=== PATIENT | male | born 1935 | race Caucasian/White ===

== ENCOUNTER 2019-04-14 05:43 | Day surgery (SDC) | payer MEDICARE, OTHER, SELFPAY ==
[2019-04-10 10:35] VITALS: BMI 26.2
--- NOTE | 2019-04-10 10:50 | ANES.PREANE2 ---
Pre-Anesthetic Assessment Pre-Anesthetic Assessment: Height/Weight: Height 1.83 m Weight 87.543 kg Preop Diagnosis: Symptomatic right groin and umbilical hernia Proposed Procedure: Operation Date: 04/14/19 07:00 Proposed Procedures p Laparoscopic Inguinal Hernia Repair w/Mesh 52855 [id number] K42.9 K40.90(Right) - Nuno Lundberg MD s Umbilical Hernia Repair(Not Applicable) - Nuno Lundberg MD Social: Social History: No alcohol and No tobacco Exam: Pre-Anes Outpt Exam: alert, oriented x 3, clear to auscultation bilaterally and regular rate & rhythm Airway: Submandibular: WNL Cervical ROM: WNL MP: 2 Dentition: Other (teeth ok) History/ROS: No significant history except as noted Pulmonary: Pulmonary: None reported CV/HEM: CV/HEM: HTN : : None reported Hepatic: Hepatic: None reported GI: GI: GERD (occ) Metabolic: Metabolic: None reported Musc/skel: Musc/skel: OA/DJD Neuropsych: Neuropsych: None reported Anesthetic Plan: ASA status: 2 Anesthesia: Anesthesia Evaluation and General Risk of > 500 ml blood loss (7ml/kg in children): No PFSH Anesthesia PFSH: Medical History BPH (benign prostatic hyperplasia) Hernia History of perforated ear drum (~2012) Hypertension Surgical History History of carpal tunnel surgery of right wrist History of colonoscopy (~05/2018) normal History of left inguinal hernia repair (~1972) Family History Mother Cancer breast Father Cancer thyroid Denies family history of Anesthesia complication Bleeding disorder Social History Smoking and tobacco status: former smoker Quit status (tobacco): has quit using tobacco Year quit tobacco: 1981 Second hand smoke exposure: No Alcohol intake: current Alcohol intake frequency: holidays/special occasions only Alcohol type: beer Adopted: No Caregiver/support person: Yes Lives independently: Yes Household members: spouse Housing: House Marital status: service: Yes Current occupational status: retired Current occupational exposures/hazards: No Pets and animals: No History of recent travel: No Sexually active: No Current gender identity: Male Data Anesthesia Cardiac Studies: No Data to Display
[2019-04-14] VITALS (7 sets, daily range): BP systolic 105–128; BP diastolic 71–91; PULSE 71–83; RESP 14–20; TEMP 36.2–36.8; O2SAT 94–99
--- NOTE | 2019-04-14 06:24 | PM.HPUD ---
H&P update H&P Update: DATE OF SURGERY/PROCEDURE: 04/14/19 DATE H&P PERFORMED: 03/30/19 H&P UPDATE INFORMATION: H&P completed within last 30 days and No changes to prior documentation PREOP DIAGNOSIS: Symptomatic right groin and umbilical hernia PRIMARY INDICATION FOR PROCEDURE: The same PLANNED PROCEDURE: Operation Date: 04/14/19 07:00 Proposed Procedures p Laparoscopic Inguinal Hernia Repair w/Mesh 24519 18375 K42.9 K40.90(Right) - Nuno Lundberg MD s Umbilical Hernia Repair(Not Applicable) - Nuno Lundberg MD Full H&P Perinent History: Medical/Surgical History: Medical History (Updated 03/31/19 @ 14:52 by Nuno Ludnberg MD) BPH (benign prostatic hyperplasia) Hernia History of perforated ear drum (~2012) Hypertension Family History: Family History (Updated 03/27/19 @ 15:05 by Dara Caro RN) Mother Cancer breast Father Cancer thyroid Denies family history of Anesthesia complication Bleeding disorder Social History: Social History Smoking and tobacco status: former smoker Quit status (tobacco): has quit using tobacco Year quit tobacco: 1981 Second hand smoke exposure: No Alcohol intake: current Alcohol intake frequency: holidays/special occasions only Alcohol type: beer Adopted: No Caregiver/support person: Yes Lives independently: Yes Household members: spouse Housing: House Marital status: service: Yes Current occupational status: retired Current occupational exposures/hazards: No Pets and animals: No History of recent travel: No Sexually active: No Current gender identity: Male
[2019-04-14] MEDS: sodium chloride 0.9% 1,000 ML 30 ML IV (06:34)
[2019-04-14] MEDS: lidocaine 2% INJ 20 mL INJECTION (07:29)
--- NOTE | 2019-04-14 08:45 | PM.OP ---
Operative Report Date of procedure: April 14, 2019 Pre-op Diagnosis: Symptomatic right groin and umbilical hernia Post-op diagnosis: same Post-op Findings: Right direct and smaller indirect component 3D large mesh placed Umbilical hernia containing omental fat closed using trans-fascial closure device Procedure Done: Laparoscopic right inguinal hernia repair with mesh placement and open umbilical hernia repair Implants: Right large 3D mesh Specimens removed/disposition: Hernial sac and content Surgeon: Nuno Lundberg Enrollment Coordinator: Surgical michael Wyatt Medical student Abraham Perez Circulating nurse Delores Anesthesia: General (director of sales marketing Paulino) Estimated blood loss (mL): 10 Condition: stable Disposition: same day Procedure: Procedure: Transabdominal preperitoneal (BERTRAND) approach. Patient was identified in the holding area ,patient was taken to the operating room where he was placed in supine position, with both arms were tucked, antibiotic was given with induction, endotracheal tube was placed per anesthesia, Garcia catheter was inserted by the circulating nurse and revealed clear urine, prep and drape of the abdomen was done under the usual sterile technique. Time-out was done verifying the patient's name/date of /planned procedure destination after the procedure, all were in agreement. SCDs confirmed to be functioning, preoperative antibiotics administered per protocol, and beta alejandro protocol was confirmed. A vertical skin incision of 1.2 cm was made with 11 blade knife through the supra umbilicus , incision was carried down to the subcutaneous tissue and deepened to identify the anterior fascia, evidence of large jhonny-umbilical fat-containing hernia(fascial defect less than 1 inch in diameter) was dissected and hernial sac and contents were sent for permanent pathology followed by that, two stay sutures were applied to the fascia, and safe entrance to the abdominal cavity was achieved, a Menard trocar technique safe entry to the abdominal cavity was achieved verified by using 10 mm zero degree laparoscopy, switched to a 30 degrees scope,low flow followed by a higher flow of CO2 gas up to 15 mmHg. There was no evidence of injury to intra-abdominal structures from the port entry, attention was deviated to both groins, there was a large direct hernia defect with herniation of peritoneum and preperitoneal fat was noted on the right side, two 5 mm ports were placed on the lower left lateral and left upper aspect of the abdomen, under direct visualization, anesthesia 2% lidocaine local was injected at all trocar sites prior to incisions. The peritoneum above the level of the iliopubic tract was incised to the left of the midline and dissection was performed to create a preperitoneal space medial to lateral aspect up to anterior superior iliac spine on the right side. Dissection was continued onto the medial aspect and the right spermatic was identified, there was evidence of direct inguinal hernia .the sac was dissected. As it applied medial to the right inferior epigastric vessels/ dissection was performed to clear the space lateral to the spermatic cord and dorsomedial to it, the hernia sac was reduced and retracted far back, so there wasn't evidence of a small indirect inguinal hernia that was dissected.. Then a large 3-D mesh was rolled and placed into the abdominal cavity through the Menard port, after the mesh was introduced it was positioned to lie in the myopectineal orifice and the mesh was unrolled and this covered the entire my myope pectineal orifice. Intra-abdominal pressure was dropped to 12 mmHg to help placement of the mesh good position On the lateral aspect of the mesh extended up to the anterior superior iliac spine on the medial aspect the mesh crossed the midline onto the left side, then using absorbable tacks, placed above the iliopubic tract onto the rectus abdominis muscle on the medial aspect and also to the lateral abdominal wall superomedial to the sacroiliac spine, then the mesh was also anchored to the pubis and the Aj's ligament inferiorly. The peritoneal leaflets were then brought together to cover the mesh and isolated from the other viscera, extra tacks were used to secure the peritoneum in good position. 5 mm clips were applied at the lower part of the peritoneum as there was a small rent Final look demonstrated good hemostasis and the mesh in good position A total of 20 mL Exparel 40 ml Normal saline 20 ml bupivacaine 0.25% were injected at the remaining of the tacks site and trocar sites as well Final look demonstrated good hemostasis, then the abdomen was desufflated while holding the peritoneum to make sure there is no herniation blue the mesh. Then the fascia on the supra umbilical fascial defect previous site of the hernia was closed using 0 Vicryl under direct visualization using fascial closure device Arnoldo Nieves. Then all trochars were taken out under direct visualization All skin incisions were closed with 4-0 Monocryl subcuticular suture and Dermabond was applied. The patient tolerated the procedure well, Garcia catheter was taken out ,got extubated and was taken to the recovery area in stable condition All counts of instruments, needles and sponges were completed I was present for the whole entire procedure
[2019-04-14] MEDS: HYDROcodone-acetaminophen 5-325 mg Tablet 1 TAB PO (09:40)
== END 2019-04-14 10:55 | disposition home or self-care (01) ==
PROVIDERS: Family Provider Nurse Practitioner Family; PCP Nurse Practitioner Family; Visit Provider Surgery
PROC: (CPT 49650; principal; 2019-04-14 07:00)
PROC: (CPT 49585; 2019-04-14 07:00)
DX: K40.90 Unilateral inguinal hernia, without obstruction or gangrene, not specified as recurrent (principal); K42.9 Umbilical hernia without obstruction or gangrene; N40.0 Benign prostatic hyperplasia without lower urinary tract symptoms; I10 Essential (primary) hypertension; Z87.891 Personal history of nicotine dependence
CPT/HCPCS: 49585; 49650; 12345; 51702; 88302; 96365; C1781; C9290; J0131; J0690; J2001; J2405; J2704; J3010; J3490; J7030

== ENCOUNTER → 2020-02-11 15:21 | Outpatient (BNVA) | payer MEDICARE, OTHER, SELFPAY | PROVIDERS: Family Provider Nurse Practitioner Family; PCP Nurse Practitioner Family; Visit Provider Nurse Practitioner | DX: R07.9 Chest pain, unspecified (principal); I10 Essential (primary) hypertension; J43.9 Emphysema, unspecified | CPT/HCPCS: 71046; 80053; 80061; 84443; 84484; 85025 ==

== ENCOUNTER → 2021-12-11 11:04 | Outpatient (BNVA) | payer MEDICARE, SELFPAY | PROVIDERS: Family Provider Nurse Practitioner Family; PCP Nurse Practitioner Family; Visit Provider Nurse Practitioner Family | DX: M25.461 Effusion, right knee (principal); M25.561 Pain in right knee; M25.562 Pain in left knee | CPT/HCPCS: 73562 ==

== ENCOUNTER → 2021-12-19 08:22 | Outpatient (BNVA) | payer MEDICARE, SELFPAY | PROVIDERS: Family Provider Nurse Practitioner Family; PCP Nurse Practitioner Family; Visit Provider Orthopaedic Surgery | DX: M17.0 Bilateral primary osteoarthritis of knee (principal) | CPT/HCPCS: 99204 ==

== ENCOUNTER → 2022-06-27 10:10 | Outpatient (BNVA) | payer MEDICARE, SELFPAY | PROVIDERS: Family Provider Nurse Practitioner Family; PCP Nurse Practitioner Family; Visit Provider Nurse Practitioner Family | DX: R05.9 Cough, unspecified (principal); R07.89 Other chest pain | CPT/HCPCS: 71046; 80053; 85025 ==

== ENCOUNTER → 2022-09-21 09:59 | Outpatient (BNVA) | payer MEDICARE, SELFPAY | PROVIDERS: Family Provider Nurse Practitioner Family; PCP Family Medicine; Visit Provider Family Medicine | DX: R06.00 Dyspnea, unspecified (principal); R53.83 Other fatigue; J44.9 Chronic obstructive pulmonary disease, unspecified; I10 Essential (primary) hypertension; E03.9 Hypothyroidism, unspecified | CPT/HCPCS: 80053; 82088; 82533; 82607; 84443; 85025 ==

== ENCOUNTER → 2022-10-10 12:32 | Outpatient (BNVA) | payer MEDICARE, SELFPAY | PROVIDERS: Family Provider Nurse Practitioner Family; PCP Family Medicine; Visit Provider Dermatology | DX: L82.1 Other seborrheic keratosis (principal); L81.4 Other melanin hyperpigmentation; D18.01 Hemangioma of skin and subcutaneous tissue; Z08 Encounter for follow-up examination after completed treatment for malignant neoplasm; Z85.820 Personal history of malignant melanoma of skin; D48.5 Neoplasm of uncertain behavior of skin; L57.0 Actinic keratosis | CPT/HCPCS: 11102; 17000; 17003; 99203; 99204 ==

== ENCOUNTER → 2022-11-29 11:49 | Outpatient (BNVA) | payer MEDICARE, SELFPAY | PROVIDERS: Family Provider Nurse Practitioner Family; PCP Family Medicine; Visit Provider Internal Medicine Pulmonary Disease | DX: J44.9 Chronic obstructive pulmonary disease, unspecified (principal); R06.00 Dyspnea, unspecified; J84.9 Interstitial pulmonary disease, unspecified; R06.02 Shortness of breath; M19.90 Unspecified osteoarthritis, unspecified site; M25.642 Stiffness of left hand, not elsewhere classified; M25.641 Stiffness of right hand, not elsewhere classified; Z57.2 Occupational exposure to dust; Z87.891 Personal history of nicotine dependence | CPT/HCPCS: 36415; 82785; 85651; 86003; 86140; 86200; 86225; 86235; 86431; 99204 ==

== ENCOUNTER 2022-12-11 07:22 | Outpatient (CLI) | payer MEDICARE, SELFPAY | END 2022-12-11 07:23 | disposition home or self-care (01) | LOC: RT 07:22 | PROVIDERS: Family Provider Nurse Practitioner Family; PCP Family Medicine; Visit Provider Internal Medicine Pulmonary Disease | DX: R06.02 Shortness of breath (principal) | CPT/HCPCS: 94010; 94618; 94726; 94729 ==

== ENCOUNTER 2022-12-14 10:24 | Outpatient (CLI) | payer MEDICARE, SELFPAY ==
--- NOTE | 2022-12-14 10:30 | CTR_ITS ---
PROCEDURE INFORMATION: Exam: CT Chest Without Contrast; Diagnostic Exam date and time: 12/14/2022 10:51 AM Age: 87 years old Clinical indication: Condition or disease; Lung condition and disease; Other: Interstitial lung disease; Additional info: Hrct TECHNIQUE: Imaging protocol: Diagnostic computed tomography of the chest without contrast. Radiation optimization: All CT scans at this facility use at least one of these dose optimization techniques: automated exposure control; mA and/or kV adjustment per patient size (includes targeted exams where dose is matched to clinical indication); or iterative reconstruction. REPORTING DATA: Count of CT and Cardiac NM exams in prior 12 months: This patient has received 0 known CTs and 0 known cardiac nuclear medicine studies in the 12 months prior to the current study. COMPARISON: CR XR chest 2V* [id number] 06/27/2022 10:08 AM RADIATION DOSE METRICS: Total DLP (mGy-cm): 1111.52 FINDINGS: Thyroid: 1.5 cm nodule right lobe of the thyroid gland. 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 Few small pulmonary nodules measuring up to 5 mm. Mild biapical fibrotic changes likely longstanding. Pleural spaces: Unremarkable. No pneumothorax. No pleural effusion. Heart: Heart is not enlarged. Diffuse calcification of coronary arteries. No significant pericardial effusion. Lymph nodes: Multiple small mediastinal lymph nodes likely benign by size criteria. Vasculature: Scattered atherosclerotic changes of the thoracic aorta. No evidence of aortic aneurysm. Bones/joints: Subacute ununited fracture left 10th rib. Mild degenerative changes midthoracic spine. Soft tissues: Unremarkable. CT/CT chest wo con [id number] IMPRESSION: 1. 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 2. Few small pulmonary nodules measuring up to 5 mm. Recommend a repeat study in 6-12 months for continued surveillance. 3. Diffuse calcification of coronary arteries. COMMENTS: Consistent with the [employer]'s Incidental Findings Committee white paper (J Am Sonia Radiol 2015): In patients aged 35 years and older with an incidental thyroid nodule equal to or greater than 1.[address], MRI or extrathyroidal US, further evaluation with dedicated thyroid US is recommended for patients with normal life expectancy and without comorbidities. For smaller nodules without suspicious features, no further evaluation or follow up is recommended.
== END 2022-12-14 10:25 | disposition home or self-care (01) ==
LOC: RAD 10:25
PROVIDERS: Family Provider Nurse Practitioner Family; PCP Family Medicine; Visit Provider Internal Medicine Pulmonary Disease
DX: J84.9 Interstitial pulmonary disease, unspecified (principal)
CPT/HCPCS: 71250

== ENCOUNTER → 2023-01-29 11:57 | Outpatient (BNVA) | payer MEDICARE, SELFPAY | PROVIDERS: Family Provider Nurse Practitioner Family; PCP Family Medicine; Visit Provider Internal Medicine Pulmonary Disease | DX: J43.2 Centrilobular emphysema (principal); Z87.891 Personal history of nicotine dependence | CPT/HCPCS: 99214 ==

== ENCOUNTER 2023-04-20 11:56 | Emergency (ER) | payer MEDICARE, SELFPAY ==
[2023-04-20 12:20] VITALS: BP 157/96; PULSE 72; RESP 16; TEMP 36.8; O2SAT 99; BMI 24.4
[2023-04-20 12:56] VITALS: BP 148/111; PULSE 73; RESP 16; O2SAT 96
--- NOTE | 2023-04-20 13:04 | W.ED.BACK ---
HPI - Back Pain/Injury General: Chief Complaint: Back Pain/Injury Stated Complaint: fall, lower back pains Time Seen by Provider: 04/20/23 13:04 History of Present Illness: Patient is a 87 yo male that presents to the ER with complaints of low back pain. Onset of symptoms yesterday after a fall. He reports that he was hooking up a horse trailer when he became dizzy and lost his footing. He fell straight back, landing on his back. he denies striking his head or LOC. He reports he has been having a number of falls most recently. He states he becomes dizzy and describes generalized weakness. After this most recent fall he was able to get up and go to the house. He has had increasing back pain w/o radiation. He denies numbness or tingling in extremities. Denies other area of tenderness He does report midline lumbar pain. His pain continues to worsen today and has had intermittent SOB, diaphoresis, N/V. He has a hx of COPD and HTN. Does not take anticoagulants or antiplatelets Associated symptoms: Reports nausea and vomiting; Deny abdominal pain, chills, difficulty walking, dysuria, fatigue, fever(s), hematuria or urinary urgency Review of Systems General: Reports: 10 or more systems reviewed and unremarkable except in HPI and below Const: Denies: fever(s), chills, change in appetite, change in weight, fatigue or malaise Eyes: Denies: change in vision, eye discomfort, eye discharge or eye redness ENMT: Denies: throat pain, enlarged tonsils, odynophagia, hoarseness, ear or mastoid pain, ear discharge, change in hearing, tinnitus, nasal discharge, nasal congestion, post nasal drip or sinus pain Card: Denies: chest pain, palpitations, irregular heart rhythm, edema, dyspnea on exertion, orthopnea or leg pain with exertion Resp: Reports: dyspnea; Denies: productive cough, non-productive cough, wheezing, stridor or chest congestion GI: Reports: nausea and vomiting; Denies: abdominal pain, dysphagia, diarrhea, constipation, bloating, GI cramping or hematochezia : Denies: flank pain, dysuria, urinary frequency, urinary urgency, urinary hesitancy, oliguria or hematuria Musc: Reports: back pain; Denies: neck pain, extremity pain, joint pain, joint swelling, joint redness, joint warmth or muscle weakness Skin/Breast: Denies: rash, pruritus, erythema, photosensitivity or new lesions Neuro: Reports: frequent falls and dizziness; Denies: headache(s), numbness in extremities, weakness in extremities, sensory changes, lack of coordination, difficulty walking, confusion, Slurred speech present, difficulty communicating thoughts, seizure-like activity or involuntary movements Endo: Denies: polyuria, polydipsia or tired all the time Jameel/Lymph: Denies: easy bruising or easy bleeding PFSH ED PFSH: Medical History Effusion, right knee Hernia Hypertension BPH (benign prostatic hyperplasia) History of perforated ear drum (~2012) Surgical History History of carpal tunnel surgery of right wrist History of left inguinal hernia repair (~1972) History of colonoscopy (~05/2018) normal Family History Mother Cancer breast Father Cancer thyroid Denies family history of Anesthesia complication Bleeding disorder Social History Smoking and tobacco/nicotine status: former use of tobacco/nicotine Quit status (tobacco/nicotine): has quit using Year quit tobacco: 1981 Former quit date comment: 0.5 ppd X 31 years Second hand smoke exposure: No Alcohol intake: current Alcohol intake frequency: holidays/special occasions only Alcohol type: beer Substance/Drug Use: never Adopted: No Caregiver/support person: Yes Lives independently: Yes Household members: spouse Housing: House Marital status: Number of children: 3 service: No Current occupational status: retired Current occupational exposures/hazards: No Pets and animals: No Sexually active: No Do you think of yourself as: Straight/Heterosexual Current gender identity: Male Physical Exam Const: COMMON NORMALS: no acute distress, patient oriented x3 and alert GENERAL APPEARANCE: cooperative ORIENTATION/CONSCIOUSNESS: Yes awake, Yes oriented to person, Yes oriented to place and Yes oriented to time HENMT: COMMON NORMALS: normocephalic and atraumatic HEAD & SCALP: normocephalic and atraumatic FACE & SINUS: normal facial exam MOUTH: Normal oral and palatal mucosa present THROAT: posterior oropharynx normal Eye: COMMON NORMALS: Equal, round and reactive pupils present, EOMs intact bilaterally, conjunctivae normal and no scleral icterus GENERAL EYE: appearance normal, both eyes and all related structures ALIGNMENT: Yes alignment normal PERIORBITAL: periorbital findings normal CONJUNCTIVA: Yes conjunctivae normal PUPIL: Yes Equal, round and reactive pupils present Neck/C-Spine: COMMON NORMALS: full ROM GENERAL: Yes normal visual inspection CERVICAL SPINE: Yes cervical ROM normal and Yes other (crepitus with ROM) Lymph: LYMPHATIC: no lymphadenopathy noted Chest: COMMONS NORMALS: normal inspection of the chest Breast/axilla inspection: Yes no chest deformity, asymmetry, normal contours, no nodules, masses, tenderness Resp: COMMON NORMALS: normal respiratory effort, No retractions, No use of accessory muscles and clear to auscultation bilaterally EFFORT & INSPECTION: Yes able to speak in complete sentences and Yes symmetric chest movement AUSCULTATION: clear to auscultation bilaterally Cardio: COMMON NORMALS: regular rate, regular rhythm and Peripheral pulses 2+ throughout RATE: regular rate RHYTHM: regular rhythm PERIPHERAL PULSES: Peripheral pulses 2+ throughout GI: COMMON NORMALS: Normal to inspection, nondistended, normoactive bowel sounds present, Soft to palpation, non-tender and No hepatosplenomegaly present INSPECTION: Yes normal to inspection AUSCULTATION: Yes normoactive bowel sounds PALPATION: Yes Soft to palpation and Yes No hepatosplenomegaly present RECTAL EXAM: Yes deferred Back/Pelvis: GENERAL BACK: No ecchymosis and Yes tenderness LUMBAR SPINE/LOWER BACK: Yes normal to inspection, No lumbar ROM normal, Yes pain with ROM and Yes lumbar spinal tenderness (diffuse) OTHER: Patient ambulates with a cane Paraspinous muscles without spasm Limited range of motion due to pain TTP over midline lumbar spine Patient has 5/5 strength in bilateral hip flexor, quad, gastroc, anterior, toe extensors Denies numbness, tingling, pain in lower extremities 2+ reflexes, no clonus Extremity: COMMON NORMALS: normal to inspection GENERAL: Yes normal exam except as noted Neuro: COMMON NORMALS: patient oriented x3 SENSORIUM/ORIENTATION: Yes alert, Yes oriented to person, Yes oriented to place and Yes oriented to time CRANIAL NERVES: Yes CN normal except as noted Psych: COMMON NORMALS: mental status grossly normal, Normal thought process present, cooperative, activity/motor behavior normal, denies homicidal ideation and denies suicidal ideation THOUGHT PROCESS: Normal thought process present Skin: COMMON NORMALS: no rashes or lesions noted, no wounds and turgor normal GENERAL SKIN EXAM: no rashes or lesions noted and turgor normal Course Vital Signs: Vital signs: Vital Signs Temperature 98.2 F 04/20/23 12:20 Pulse Rate 73 04/20/23 12:56 Respiratory Rate 16 04/20/23 12:56 Blood Pressure 148/111 04/20/23 12:56 Pulse Oximetry 96 04/20/23 12:56 Oxygen Delivery Me thod Room Air 04/20/23 12:56 MDM - Back Pain/Injury Medical Decision Making Patient evaluated in the emergency department due to lumbar back pain following a fall. Patient had reported recent history of multiple falls, dizziness, unsteady gait. I did obtain a series of diagnostics and laboratory studies to further evaluate him. Differential diagnosis includes fracture, effusion, sprain/strain, head injury, stroke, hemorrhage, cardiac event, electrolyte abnormality, anemia. I obtained a CBC, CMP, troponin series to further evaluate this questionable dizziness that has been intermittent and ongoing for weeks to months. He has no evidence of electrolyte abnormality, anemias, leukocytosis. No evidence of renal or liver dysfunction. Troponin series within normal limits?initial troponin 11. I did obtain an EKG which revealed no ectopy, ST elevation, abnormal T wave inversion. Ventricular rate was 70 beats a minute and QTc of 417. I obtained a CT of his head, cervical spine, lumbar spine. Imaging of the head without contrast reveals no acute intracranial pathology. The cervical spine reveals degenerative changes but no acute fracture or subluxation. The CT of the lumbar spine reveals an L3 compression deformity with mild retropulsion. I did speak with Dr. Chavarria who is agreeable to follow-up with the patient this week or next. We are going to get him a TLSO. He is to wear this when he is out of bed. We are also sending him with a prescription of pain medication and muscle relaxers. He does have tramadol and oxycodone already at home. So he will pick this up next week if needed. Patient has no radiculopathy, no numbness tingling, no myelopathy. He is going to follow-up with Dr. Chavarria but will return to the emergency department for new concerning or worsening symptoms Labs 04/20/23 13:40 04/20/23 13:40 Radiology Impressions Chest X-Ray 04/20/23 13:13 IMPRESSION: Trace atelectasis or scar noted in the left lung base. Cervical Spine CT 04/20/23 13:17 IMPRESSION: 1. No acute cervical spine pathology. 2. Irregular area of parenchymal thickening seen at left lung apex unchanged from prior exam and felt to represent an area of chronic scarring. 3. 1.5 cm hypodense lesion in the right thyroid lobe unchanged from prior exam. Lumbar Spine CT 04/20/23 13:17 IMPRESSION: 1. L2 vertebral body compression fracture without retropulsion of bony fragments. 2. Emphysematous changes. 3. Right kidney not obstructing calyceal stones. 4. L2-L3 broad-based disc bulge with moderate spinal canal and bilateral foraminal narrowing. 5. L3-L4 broad-based disc bulge with moderate to severe spinal canal and bilateral foraminal narrowing. 6. L4-L5 broad-based disc bulge with moderate spinal canal and bilateral foraminal narrowing. 7. L5/S1 broad-based disc bulge with mild spinal canal and bilateral foraminal narrowing. Head CT 04/20/23 13:19 IMPRESSION: No acute intracranial pathology detected. Laboratory Results WBC 7.61 10^3/uL (3.29-11.43) 04/20/23 13:40 RBC 5.40 10^6/uL (3.85-5.65) 04/20/23 13:40 Hgb 16.80 g/dL (11.27-16.99) 04/20/23 13:40 Hct 50.6 % (37-53) 04/20/23 13:40 MCV 93.7 fl (82-101) 04/20/23 13:40 MCH 31.1 pg (27-33) 04/20/23 13:40 MCHC 33.2 g/dL (30-55) 04/20/23 13:40 RDW 14.6 % (12.1-15.1) 04/20/23 13:40 Plt Count 198 10^3/cmm (157-399) 04/20/23 13:40 MPV 10.2 fL (7.4-10.4) 04/20/23 13:40 Neut % (Auto) 84.1 % 04/20/23 13:40 Lymph % (Auto) 6.8 % 04/20/23 13:40 Kaufman % (Auto) 8.1 % 04/20/23 13:40 Eos % (Auto) 0.4 % 04/20/23 13:40 Baso % (Auto) 0.3 % 04/20/23 13:40 Neut # (Auto) 6.40 10^3/uL (1.8-7.7) 04/20/23 13:40 Lymph # (Auto) 0.5 10^3/uL (0.8-4.8) L 04/20/23 13:40 Kaufman # (Auto) 0.6 10^3/uL (0.2-0.9) 04/20/23 13:40 Eos # (Auto) 0.0 10^3/uL (0.0-0.8) 04/20/23 13:40 Baso # (Auto) 0.0 10^3/uL (0.0-0.1) 04/20/23 13:40 Nucleated RBC % (auto) 0 % 04/20/23 13:40 Nucleated RBCs # 0.0 /100WBC 04/20/23 13:40 Sodium 140 mmol/L (136-145) 04/20/23 13:40 Potassium 4.8 mmol/L (3.5-5.1) 04/20/23 13:40 Chloride 107 mmol/L (98-107) 04/20/23 13:40 Carbon Dioxide 25 mmol/L (22-29) 04/20/23 13:40 Anion Gap 12.8 (5-19) 04/20/23 13:40 BUN 20 mg/dL (8-23) 04/20/23 13:40 Creatinine 1.1 mg/dL (0.7-1.2) 04/20/23 13:40 GFR Calculation Not Reportable 04/20/23 13:40 Glucose 104 mg/dL (65-115) 04/20/23 13:40 Calculated Osmolality 293 mOsm/kg (285-295) 04/20/23 13:40 Calcium 8.5 mg/dL (8.5-10.5) 04/20/23 13:40 Total Bilirubin 0.5 mg/dL (0.15-1.2) 04/20/23 13:40 AST 18 U/L (0-40) 04/20/23 13:40 ALT 14 U/L (0-41) 04/20/23 13:40 Alkaline Phosphatase 61 U/L (40-130) 04/20/23 13:40 Troponin T Baseline 11 ng/L (0-15) 04/20/23 13:40 Total Protein 6.2 g/dL (6.6-8.7) L 04/20/23 13:40 Albumin 4.0 g/dL (3.5-5.2) 04/20/23 13:40 Globulin 2.2 g/dL (1.3-4.6) 04/20/23 13:40 All radiology interpretation(s) finalized by discharge Discharge Plan Discharge Patient Disposition: Home Clinical Impression: Compression fracture of lumbar vertebra Condition: Stable Prescriptions: New hydrocodone-acetaminophen 5-325 mg tablet 1 tab PO Q6H PRN (Reason: pain) Qty: 14 0RF methocarbamol 500 mg tablet 500 mg PO Q6H PRN (Reason: Muscle spasms) Qty: 30 0RF No Action tamsulosin 0.4 mg capsule 0.4 mg PO BID albuterol sulfate 90 mcg/actuation HFA aerosol inhaler 2 puff inhalation QID PRN (Reason: shortness of breath or wheezing) Qty: 6.7 5RF celecoxib [Celebrex] 200 mg capsule 200 mg PO DAILY Qty: 30 5RF magnesium 250 mg Tablet 500 mg PO DAILY vitamin E 268 mg (400 unit) Capsule 268 mg PO DAILY lisinopril 20 mg tablet 20 mg PO DAILY Incruse Ellipta 62.5 mcg/actuation blister with device 1 inh inhalation DAILY Discharge Orders: Discharge ED (Routine); Ordered 04/20/23 Ordered By: Doug Major McTeer Referrals: Sahw Chavarria DO [Physician] - Charlie Amaya DO [Primary Care Provider] - Discharge Diet: Advance as tolerated Discharge Activity: Resume usual activity Patient Instructions: Fractures - Compression, Opioid Safety, Pain Management Activity Restrictions/Additional Instructions: I provided you with information on lumbar compression fractures. You need to follow-up with your primary care doctor to discuss osteoporosis and osteoporosis management. I provided you with a brace. You are to wear this when you get out of bed. When at rest in a recliner or in bed, you may remove. No lifting pushing or pulling more than 10 pounds. To help gauge this, keep in mind that a gallon of milk weighs 8 pounds. No bending twisting or lifting. This could make the fracture worse and change the treatment plan. Follow-up with Dr. Chavarria this week or next. I have provided you his contact information but I am also asking the clinical social work aide/case therapist to help set up your follow-up appointment. Coding Level of Care Code ED Merchandise Presentation Manager for Natalie Cook
--- NOTE | 2023-04-20 13:13 | XRR_ITS ---
PROCEDURE INFORMATION: Exam: XR Chest Exam date and time: 04/20/2023 1:24 PM Age: 87 years old Clinical indication: Chest wall pain and left-sided; Patient HX: Lt lower anterior rib pain post fall, back pain, intermittent diaphoresis, n/v TECHNIQUE: Imaging protocol: Radiologic exam of the chest. Views: 1 view. Total images: 3 COMPARISON: CT chest wo con [id number] 12/14/2022 10:51 AM FINDINGS: Lungs: Trace atelectasis or scar noted in the left lung base. Pleural spaces: Unremarkable. No pleural effusion. No pneumothorax. Heart/Mediastinum: Unremarkable. No cardiomegaly. Bones/joints: Moderate degenerative changes of the left shoulder are noted. Mild scattered degenerative changes of the spine. XR/XR chest 1V portable [id number] IMPRESSION: Trace atelectasis or scar noted in the left lung base.
--- NOTE | 2023-04-20 13:17 | CTR_ITS ---
PROCEDURE INFORMATION: Exam: CT Cervical Spine Without Contrast Exam date and time: 04/20/2023 1:52 PM Age: 87 years old Clinical indication: Injury or trauma; Fall; Blunt trauma; Additional info: Fall, injury TECHNIQUE: Imaging protocol: Computed tomography of the cervical spine without contrast. Total images: 364 Radiation optimization: All CT scans at this facility use at least one of these dose optimization techniques: automated exposure control; mA and/or kV adjustment per patient size (includes targeted exams where dose is matched to clinical indication); or iterative reconstruction. COMPARISON: CT head wo con* [id number] 04/20/2023 1:52 PM RADIATION DOSE METRICS: Total DLP (mGy-cm): 543.7 FINDINGS: Bones/joints: C3-5 degenerative disc disease with disc space narrowing and osteophyte formation. Uncovertebral joint degeneration is present. Facet joint degenerative changes are present. Lungs: Irregular area of parenchymal thickening seen at left lung apex unchanged from prior exam and felt to represent an area of chronic scarring. There are multiple subpleural blebs in the lung apices. Thyroid: 1.5 cm hypodense lesion in the right thyroid lobe unchanged from prior exam. Soft tissues: Unremarkable. CT/CT cervical spin wo con* [id number] IMPRESSION: 1. No acute cervical spine pathology. 2. Irregular area of parenchymal thickening seen at left lung apex unchanged from prior exam and felt to represent an area of chronic scarring. 3. 1.5 cm hypodense lesion in the right thyroid lobe unchanged from prior exam.
--- NOTE | 2023-04-20 13:17 | CTR_ITS ---
PROCEDURE INFORMATION: Exam: CT Lumbar Spine Without Contrast Exam date and time: 04/20/2023 1:56 PM Age: 87 years old Clinical indication: Injury or trauma; Fall; Blunt trauma (contusions or hematomas); Additional info: Fall, injury TECHNIQUE: Imaging protocol: Computed tomography of the lumbar spine without contrast. Radiation optimization: All CT scans at this facility use at least one of these dose optimization techniques: automated exposure control; mA and/or kV adjustment per patient size (includes targeted exams where dose is matched to clinical indication); or iterative reconstruction. COMPARISON: CT abdomen pelvis w con* [id number] 05/03/2018 8:02 PM RADIATION DOSE METRICS: Total DLP (mGy-cm): 651.3 FINDINGS: Bones/joints: L2 vertebral body compression fracture without retropulsion of bony fragments. L1-L2: No significant disc bulge or herniation. No severe spinal canal stenosis. No significant neural foraminal narrowing. L2-L3: L2-L3 broad-based disc bulge with moderate spinal canal and bilateral foraminal narrowing. L3-L4: L3-L4 broad-based disc bulge with moderate to severe spinal canal and bilateral foraminal narrowing. L4-L5: L4-L5 broad-based disc bulge with moderate spinal canal and bilateral foraminal narrowing. L5-S1: L5/S1 broad-based disc bulge with mild spinal canal and bilateral foraminal narrowing. Lungs: Emphysematous changes. Kidneys and ureters: Right kidney not obstructing calyceal stones. Soft tissues: Unremarkable. CT/CT lumbar spine wo con* [id number] IMPRESSION: 1. L2 vertebral body compression fracture without retropulsion of bony fragments. 2. Emphysematous changes. 3. Right kidney not obstructing calyceal stones. 4. L2-L3 broad-based disc bulge with moderate spinal canal and bilateral foraminal narrowing. 5. L3-L4 broad-based disc bulge with moderate to severe spinal canal and bilateral foraminal narrowing. 6. L4-L5 broad-based disc bulge with moderate spinal canal and bilateral foraminal narrowing. 7. L5/S1 broad-based disc bulge with mild spinal canal and bilateral foraminal narrowing.
--- NOTE | 2023-04-20 13:19 | CTR_ITS ---
PROCEDURE INFORMATION: Exam: CT Head Without Contrast Exam date and time: 04/20/2023 1:52 PM Age: 87 years old Clinical indication: Injury or trauma; Fall; Blunt trauma (contusions or hematomas); Additional info: Fall, dizzy TECHNIQUE: Imaging protocol: Computed tomography of the head without contrast. Total images: 310 Radiation optimization: All CT scans at this facility use at least one of these dose optimization techniques: automated exposure control; mA and/or kV adjustment per patient size (includes targeted exams where dose is matched to clinical indication); or iterative reconstruction. COMPARISON: CT cervical spin wo con* [id number] 04/20/2023 1:52 PM RADIATION DOSE METRICS: Total DLP (mGy-cm): 981.4 FINDINGS: Brain: Global brain atrophy and chronic white matter ischemic changes are present. Cerebral ventricles: Ventricles are appropriate in size for degree of atrophy. Paranasal sinuses: Visualized sinuses are unremarkable. No fluid levels. Mastoid air cells: Visualized mastoid air cells are well aerated. Orbital cavities: Prior bilateral lens replacements noted. Bones/joints: See Soft tissues finding. Soft tissues: Within the orbit, left trochlear tendon calcification is noted. CT/CT head wo con* [id number] IMPRESSION: No acute intracranial pathology detected.
--- NOTE | 2023-04-20 13:46 | ECG_ITS ---
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 Measurements Intervals [place] Rate: 70 P: 41 NM: 191 QRS: 34 QRSD: 109 T: 38 QT: 391 QTc: 423 Interpretive Statements SINUS RHYTHM LOW QRS VOLTAGE IN PRECORDIAL LEADS [QRS DEFLECTION < 1.0 mV IN CHEST LEADS] INCOMPLETE RIGHT BUNDLE BRANCH BLOCK [90+ ms QRS DURATION, TERMINAL R IN V1/V2, 40+ ms S IN I/aVL/V4/V5/V6] No previous ECG available for comparison Electronically Signed On 04-20-2023 15:32:45 ADVERTISING SALES EXECUTIVE by Tito Vázquez M.D. [email or web address] county [email or web address] [email or web address] clinic [id number]
--- NOTE | 2023-04-20 13:46 | ECG_ITS ---
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 Measurements Intervals [place] Rate: 70 P: 43 [place]: 185 QRS: 36 QRSD: 108 T: 40 QT: 396 QTc: 428 Interpretive Statements SINUS RHYTHM LOW QRS VOLTAGE IN PRECORDIAL LEADS [QRS DEFLECTION < 1.0 mV IN CHEST LEADS] INCOMPLETE RIGHT BUNDLE BRANCH BLOCK [90+ ms QRS DURATION, TERMINAL R IN V1/V2, 40+ ms S IN I/aVL/V4/V5/V6] SEPTAL MYOCARDIAL INFARCTION , OF INDETERMINATE AGE [40+ ms Q WAVE IN V1/V2] No previous ECG available for comparison Electronically Signed On 04-20-2023 15:36:24 PLASTER MAKER by Tito Vázquez M.D. [id number]
[2023-04-20 13:54] LABS: Basophils % 0.3 %; Eosinophils % 0.4 %; Hematocrit 50.6 % (37-53); Lymphocytes # 0.5 10^3/uL (0.8-4.8); Lymphocytes % 6.8 %; Mean Corpuscular HGB Conc 33.2 g/dL (30-55); Mean Corpuscular Hemoglobin 31.1 pg (27-33); Mean Corpuscular Volume 93.7 fl (82-101); Mean Platelet Volume 10.2 fL (7.4-10.4); Monocytes # 0.6 10^3/uL (0.2-0.9); Monocytes % 8.1 %; Neutrophils % 84.1 %; Nucleated Red Blood Cells % 0 %; Platelet Count 198 10^3/cmm (157-399); Red Cell Distribution Width 14.6 % (12.1-15.1); White Blood Count 7.61 10^3/uL (3.29-11.43)
[2023-04-20] MEDS: orphenadrine 30 mg/mL Inj 2 mL IVP (14:09)
[2023-04-20] MEDS: dexamethasone 10 mg/mL INJ IVP (14:10)
[2023-04-20] MEDS: ketorolac 30 mg/mL INJ 15 MG IVP (14:10)
[2023-04-20 14:19] LABS: Alanine Aminotransferase 14 U/L (0-41); Alkaline Phosphatase 61 U/L (40-130); Anion Gap 12.8 (5-19); Aspartate Amino Transferase 18 U/L (0-40); Blood Urea Nitrogen 20 mg/dL (8-23); Calcium 8.5 mg/dL (8.5-10.5); Carbon Dioxide 25 mmol/L (22-29); Chloride 107 mmol/L (98-107); Creatinine Clr Calc Pharmacy 55.0131; Globulin 2.2 g/dL (1.3-4.6); Glucose 104 mg/dL (65-115); Osmolality Calculated 293 mOsm/kg (285-295); Potassium 4.8 mmol/L (3.5-5.1); Sodium 140 mmol/L (136-145); Total Bilirubin 0.5 mg/dL (0.15-1.2); Total Protein 6.2 g/dL (6.6-8.7); Troponin(5th) Baseline 11 ng/L (0-15)
[2023-04-20 15:48] VITALS: BP 148/111; PULSE 73; RESP 16; TEMP 36.8; O2SAT 96
--- NOTE | 2023-04-20 22:20 | DCPLANNER ---
Message sent to Ortho for a follow up with Aura L3 compression fracture.
== END 2023-04-20 15:49 | disposition home or self-care (01) ==
PROVIDERS: Emergency Provider Nurse Practitioner; PCP Family Medicine
DX: S32.020A Wedge compression fracture of second lumbar vertebra, initial encounter for closed fracture (principal); W18.39XA Other fall on same level, initial encounter; Z87.891 Personal history of nicotine dependence; I10 Essential (primary) hypertension
CPT/HCPCS: 70450; 71045; 72125; 72131; 80053; 84484; 85025; 93005; 96374; 96375; 97760; 99285; J1100; J1885; J2360; L0456

== ENCOUNTER 2023-04-22 13:50 | Emergency (ER) | payer MEDICARE, SELFPAY ==
[2023-04-22 14:03] VITALS: BP 159/102; PULSE 83; RESP 16; TEMP 36.6; O2SAT 96
--- NOTE | 2023-04-22 14:21 | W.ED.BACK ---
HPI - Back Pain/Injury General: Chief Complaint: Back Pain/Injury Stated Complaint: fall Time Seen by Provider: 04/22/23 14:11 Source: patient Mode of arrival: EMS Limitations: no limitations History of Present Illness: Patient is a nice 87-year-old male who presents to ED today with complaint of lower back pain that started 2 days ago following a fall. Patient was evaluated here and diagnosed with an L2 compression fracture. He states he has follow-up with Dr. Chavarria this Saturday. Patient states the day following the fall he felt like he was doing okay. He has been intermittently wearing his TLSO brace. He states this morning however he had trouble getting out of bed secondary to pain and states he could not get up and walk secondary to pain. He states he just now failed his pain prescription. He states he had taken some leftover oxycodone of his 's. He states when he did take this medication it did help alleviate some of his discomfort. Patient denies numbness or tingling to his legs. He is urinating and stooling normally. MD elicited complaint: back pain and back injury (2 days ago) Pertinent past history: recent trauma (fall 2 days ago) Onset (ago): day(s) Timing: constant Severity: severe Location: lumbar spine Radiation: none Exacerbating factors: movement and walking Relieving factors: immobilization Context: fall Associated symptoms: Reports no associated symptoms; Deny abdominal pain, chills, dysuria, fatigue, fever(s) or hematuria Treatments prior to arrival: prescription analgesics Work related injury: No Review of Systems Const: Denies: fever(s), chills, body aches, fatigue or malaise Card: Denies: chest pain Resp: Denies: dyspnea GI: Denies: abdominal pain : Denies: flank pain, dysuria or hematuria Musc: Reports: back pain; Denies: neck pain, extremity pain, extremity swelling, joint pain or joint swelling Skin/Breast: Denies: rash Neuro: Denies: numbness in extremities, weakness in extremities or sensory changes PFS ED PFSH: Medical History Effusion, right knee Hernia Hypertension BPH (benign prostatic hyperplasia) History of perforated ear drum (~2012) Surgical History History of carpal tunnel surgery of right wrist History of left inguinal hernia repair (~1972) History of colonoscopy (~05/2018) normal Family History Mother Cancer breast Father Cancer thyroid Denies family history of Anesthesia complication Bleeding disorder Social History Smoking and tobacco/nicotine status: former use of tobacco/nicotine Quit status (tobacco/nicotine): has quit using Year quit tobacco: 1981 Former quit date comment: 0.5 ppd X 31 years Second hand smoke exposure: No Alcohol intake: current Alcohol intake frequency: holidays/special occasions only Alcohol type: beer Substance/Drug Use: never Adopted: No Caregiver/support person: Yes Lives independently: Yes Household members: spouse Housing: House Marital status: Number of children: 3 service: No Current occupational status: retired Current occupational exposures/hazards: No Pets and animals: No Sexually active: No Do you think of yourself as: Straight/Heterosexual Current gender identity: Male Physical Exam Const: COMMON NORMALS: no acute distress, average body habitus, patient oriented x3, no limitations, healthy appearing, alert and well nourished Resp: COMMON NORMALS: normal respiratory effort and clear to auscultation bilaterally AUSCULTATION: clear to auscultation bilaterally Cardio: COMMON NORMALS: regular rate and regular rhythm RATE: regular rate RHYTHM: regular rhythm GI: COMMON NORMALS: Normal to inspection, nondistended, normoactive bowel sounds present, Soft to palpation, non-tender and no masses PALPATION: Yes Soft to palpation : COMMON NORMALS: Yes no CVA tenderness BLADDER/KIDNEY EXAM: Yes no CVA tenderness Back/Pelvis: COMMON NORMALS: no CVA tenderness THORACIC SPINE/UPPER BACK: No thoracic spinal tenderness and No paraspinal muscle tenderness LUMBAR SPINE/LOWER BACK: Yes lumbar spinal tenderness Lumbar spinal tenderness location: L2, No paraspinal muscle tenderness and No paraspinal muscle spasm PELVIS: Yes buttocks normal and No sciatic notch tenderness SACROILIAC JOINTS: Yes SI joints normal SACRUM: no tenderness COCCYX: no tenderness Extremity: COMMON NORMALS: normal to inspection, full ROM, capillary refill normal, no joint enlargement, no clubbing, cyanosis or edema, no calf tenderness and no pedal edema GENERAL: Yes normal exam except as noted Neuro: COMMON NORMALS: patient oriented x3, moves all extremities, no focal motor deficits and no sensory deficits noted SENSORIUM/ORIENTATION: Yes alert Skin: COMMON NORMALS: no rashes or lesions noted GENERAL SKIN EXAM: no rashes or lesions noted Course Vital Signs: Vital signs: Vital Signs Temperature 97.8 F 04/22/23 14:03 Pulse Rate 75 04/22/23 15:09 Respiratory Rate 16 04/22/23 15:09 Blood Pressure 143/85 04/22/23 15:09 Pulse Oximetry 94 04/22/23 15:09 Oxygen Delivery Me thod Room Air 04/22/23 15:09 MDM - Back Pain/Injury Medical Decision Making Patient is an 87-year-old male here for back pain related to his recently diagnosed L2 compression fracture. He states he just filled his Hydrocodone prescription this morning. He had been taking some leftover Oxycodone of his 's. Here he was given Dexamethasone and Dilaudid. He was able to get up and ambulate with the help of a walker. Patient feels comfortable going home. He fears his Hydrocodone prescription (14 tabs) will not be enough to last him to his appointment with Dr. Chavarria on Saturday. I told him I could write him for additional pain meds but, because he just filled his other prescription this morning, insurance would be unlikely to cover another prescription and he may have to pay lobato for it. He does not want to do this. He states he also has some left over Tramadol 50mg he can take. He can alternate this with the Hydrocodone every 4 hours or so to last him until Saturday. Continue TLSO brace. Return to ED precautions given. Medical Records I reviewed the patient's medical records. No radiology studies performed this visit Discharge Plan Discharge Patient Disposition: Home Clinical Impression: Closed compression fracture of L2 vertebra Qualifiers: Encounter type: initial encounter Qualified Code(s): S32.020A - Wedge compression fracture of second lumbar vertebra, initial encounter for closed fracture Condition: Stable Prescriptions: No Action tamsulosin 0.4 mg capsule 0.4 mg PO BID albuterol sulfate 90 mcg/actuation HFA aerosol inhaler 2 puff inhalation QID PRN (Reason: shortness of breath or wheezing) Qty: 6.7 5RF celecoxib [Celebrex] 200 mg capsule 200 mg PO DAILY Qty: 30 5RF magnesium 250 mg Tablet 500 mg PO DAILY vitamin E 268 mg (400 unit) Capsule 268 mg PO DAILY lisinopril 20 mg tablet 20 mg PO DAILY Incruse Ellipta 62.5 mcg/actuation blister with device 1 inh inhalation DAILY hydrocodone-acetaminophen 5-325 mg tablet 1 tab PO Q6H PRN (Reason: pain) Qty: 14 0RF methocarbamol 500 mg tablet 500 mg PO Q6H PRN (Reason: Muscle spasms) Qty: 30 0RF Discharge Orders: Discharge ED (Routine); Ordered 04/22/23 Ordered By: Lorna Funk Referrals: Charlie Amaya, [Primary Care Provider] - Patient Instructions: Opioid Safety, Pain Management Activity Restrictions/Additional Instructions: As we discussed continue plan to follow-up with Dr. Chavarria. Your appointment is currently scheduled for this April 25 at 8:45. Coding Level of Care Code ED Laboratory Apparatus Glass Grinder for Natalie Cook
[2023-04-22] MEDS: HYDROmorphone 1 mg/mL INJ 1 mL IM (15:02)
[2023-04-22] MEDS: dexamethasone 10 mg/mL INJ 8 MG IM (15:02)
[2023-04-22 15:09] VITALS: BP 143/85; PULSE 75; RESP 16; O2SAT 94
--- NOTE | 2023-04-22 15:38 | PC.NURSE ---
Pt ambulated around room with walker, sat in chair and was able to stand back up with assist. States the pain is better, he would like to go home and feels like he will be ok with a little better pain control
[2023-04-22] MEDS: HYDROcodone-acetaminophen 7.5-325 mg Tablet 1 TAB PO (16:14)
[2023-04-22 17:30] VITALS: BP 147/87; PULSE 81; RESP 16; O2SAT 96
== END 2023-04-22 17:31 | disposition home or self-care (01) ==
PROVIDERS: Emergency Provider Physician Assistant; PCP Family Medicine
DX: S32.020A Wedge compression fracture of second lumbar vertebra, initial encounter for closed fracture (principal); Z87.891 Personal history of nicotine dependence; I10 Essential (primary) hypertension; W19.XXXA Unspecified fall, initial encounter
CPT/HCPCS: 96372; 99284; J1100; J1170

== ENCOUNTER → 2023-04-30 09:15 | Outpatient (BNVA) | payer MEDICARE, SELFPAY | PROVIDERS: PCP Family Medicine; Referring Provider Nurse Practitioner; Visit Provider Orthopaedic Surgery | DX: S32.020A Wedge compression fracture of second lumbar vertebra, initial encounter for closed fracture; T14.8XXA Other injury of unspecified body region, initial encounter; X58.XXXA Exposure to other specified factors, initial encounter | CPT/HCPCS: 72100; 99204 ==

== ENCOUNTER → 2023-05-21 08:28 | Outpatient (BNVA) | payer MEDICARE, SELFPAY | PROVIDERS: PCP Family Medicine; Visit Provider Orthopaedic Surgery | DX: M54.50 Low back pain, unspecified (principal); S32.020D Wedge compression fracture of second lumbar vertebra, subsequent encounter for fracture with routine healing; X58.XXXD Exposure to other specified factors, subsequent encounter | CPT/HCPCS: 72100; 99213 ==

== ENCOUNTER 2023-06-14 14:05 | Outpatient (CLI) | payer MEDICARE, SELFPAY ==
--- NOTE | 2023-06-14 15:00 | USCV_ITS ---
Keyon Mac Age: 87 Gender: M : 1935 Exam Date: 06/14/2023 14:48 Ordering Phys: Mary Paredes [employer]-C WASTEWATER TREATMENT PLANT CHEMIST-C Technologist: CT [place] [facility] [place]: PROCEDURES: Venous duplex imaging was performed in only the left lower extremity. On the left side, the common femoral, superficial femoral, profunda femoral, popliteal, posterior tibial, greater saphenous veins, and the peroneal trunk were identified and interrogated in the standard fashion. These veins were found to be easily compressible with spontaneous blood flow. No evidence of insufficiency or thrombus noted. CONCLUSIONS No evidence of left lower extremity DVT. Dread Saini MD (Electronically Signed) Final Date: 18 June 2023 10:01 S
== END 2023-06-14 14:06 | disposition home or self-care (01) ==
LOC: RAD 14:05
PROVIDERS: PCP Family Medicine; Visit Provider Nurse Practitioner Family
DX: Z09 Encounter for follow-up examination after completed treatment for conditions other than malignant neoplasm (principal); M79.89 Other specified soft tissue disorders; M79.605 Pain in left leg
CPT/HCPCS: 93971

== ENCOUNTER 2025-01-05 09:51 | Emergency (ER) | payer MEDICARE, SELFPAY ==
--- OUTSIDE RECORDS SUMMARY | 2025-01-05 10:00 | XMS_ITS | Clinical Summary ---
Author Organization [facility] tone Address [address] [place] [address] Care Team Providers Care Palm And Back Forger Name Role Phone Beltran, Marianne Mark APN Primary Care Provider [phone] Allergies No known active allergies Medications lisinopril (PRINIVIL) 20 mg tablet Take 20 mg by mouth daily. 02/15/2016 Active tamsulosin (FLOMAX) 0.4 mg capsule Take 0.4 mg by mouth daily. Active Active Problems Problem Noted Date Diagnosed Date Pulmonary nodules 03/02/2009 Hyperlipidemia 03/02/2009 Hypertension Immunizations Immunization Administration Dates Next Due (PNEUMOVAX 23)(50 YRS UP) PN EUMOCOCCAL POLYSACCHARIDE (PPV23) 0.5 ML, IM 10/04/2008 Family History Medical History Relation Name Comments Cancer Father esophageal canc er Cancer Mother brain ca Diabetes Neg Hx Heart Disease Neg Hx Relation Name Status Comments Father Mother possible brain cancer Social History Tobacco Use Types Packs/Day Years Used Date Smoking Tobacco: Former Cigarettes 0.5 30 0 1949 - 10/03/1979 Smokeless Tobacco: Never Alcohol Use Standard Drinks/Week Comments Yes 0 (1 standard drink = 0.6 oz pur e alcohol) occasional wine Sex and Gender Information Value Date Recorded Sex Assigned at Not on file Legal Sex Male 4:29 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 Gender Identity Not on file Sexual Orientation Not on file Last Filed Vital Signs Vital Sign Reading Time Taken Comments Blood Pressure 133/79 05/03/2018 9:44 PM MANAGER SKILLED Pulse 88 05/03/2018 7:00 PM MANAGER SKILLED Temperature 36.2 C (97.1 F) 05/03/2018 9:44 PM MANAGER SKILLED Respiratory Rate 16 05/03/2018 9:44 PM MANAGER SKILLED Oxygen Saturation 96% 05/03/2018 9:44 PM MANAGER SKILLED Inhaled Oxygen Concentration - - Weight 88.5 kg (195 lb) 05/03/2018 7:00 PM MANAGER SKILLED Height 182.9 cm (6') 05/03/2018 7:00 PM MANAGER SKILLED Body Mass Index 26.45 05/03/2018 7:00 PM MANAGER SKILLED Plan of Treatment Health Maintenance Due Date Last Done Comments DTAP/TDAP/TD VACCINES (1 - Tdap) 1954 ZOSTER VACCINE (1 of 2) 10/03/1987 PNEUMOCOCCAL VACCINE 50+ YEARS (2 of 2 - PCV) 10/05/19 10 10/04/2008 RSV VACCINE (60+ or ) (1 - 1-dose 75+ series) 2012 INFLUENZA VACCINE (#1) 2024 Insurance [facility] Care Teams Palm And Back Forger Relationship Specialty Start Date End Date Marianne Beltran APN [address] [place] [id number] PCP - General NURSE PRACTITIONER 05/03/18
--- OUTSIDE RECORDS SUMMARY | 2025-01-05 10:01 | XMS_ITS | Patient Health Record ---
Author Organization [facility] Address [address] [place] [address] Care Team Providers Care Claims Service Adjustor Name Role Phone Devin, Marianne Unavailable [phone] Allergies No Known Allergies Reason For Referral No Information Medications Medication SIG (Take, Route, Frequency, Duration) Notes Start Date End Date Status CeleBREX 200 MG Capsule 1 capsule with f ood Orally Once a day; Duration: 90 days Active NexIUM 20 MG Capsule Delayed Release 1 capsule Orally Once a day Active Celecoxib 200 MG Capsule TAKE ONE CAPSUL E BY MOUTH DAILY Oral; Duration: 30 Active Pepcid 40 MG Tablet 1 tablet at bedtime Orally Once a day; Duration: 90 days Active Lisinopril 20 MG Tablet TAKE 1 TABLET DA BEAR; Duration: 90 Active prednisoLONE Acetate 1 % Suspension INSTILL 1 DROP INTO EACH EYE THREE TIMES DAILY FOR 6 WEEKS Ophthalmic; Duration: 38 Not-Taking Tamsulosin HCl 0.4 MG Capsule TAKE 1 CAPSULE TWICE DAILY; Duration: 90 Active Immunizations Vaccine Route Administration Date Status Comme nts Flucelvax Quadrivalent Pres Free IM Intramuscular 01/23/2022 Administered [facility] [id number] 4 pt tolerated well/instructed to wait 20 min Social History Tobacco Use: Social History Observation Description Date Details (start date - stop date) Former Smoker NA - NA Social History Depression Screening Social Info Question Answer Notes PHQ-9 Little interest or pleasure in doing thin gs Not at all Feeling down, depressed, or hopeless Not at all Trouble falling or staying asleep, or sleeping t oo much Not at all Feeling tired or having little energy Not at all Poor appetite or overeating Not at all Feeling bad about yourself, or that you are a failure, or have let yourself or your family down Not at all Trouble concentrating on thi ngs, such as reading the newspaper or watching television Not at all Moving or speaking so slowly that other people could have noticed. Or the opposite ? being so fidgety or restless that you have been moving around a lot more than usual Not at all Thoughts that you would be b chaparro off , or of hurting yourself in some way Not at all Total Score 0 Drugs/Alcohol: Social Info Question Answer Notes Alcohol Screen (Audit-C) Did you have a drink containing alcohol in the past year? Yes How often did you have a drink containing alcohol in the past year? 4 or more times a week (4 points) How many drinks did you have on a typical day when you were drinking in the past year? 1 or 2 drinks (0 point) How often did you have 6 or more drinks on one occasion in the past year? Never (0 point) Points 4 Interpretation Positive Drugs Have you used drugs other than those for medical reasons in the past 12 months? No Tobacco Use: Social Info Question Answer Notes xTobacco Use/Smoking Are you a former smoker How long has it been since you last smoked? > 10 years Additional Details Category Social Info Options Details Drugs/Alcohol: Do you smoke marijuana? De nies Do you drink alcohol? Yes Section Notes: 01/23/2022 Problems Problem Type SNOMED Code ICD Code Onset Dates Problem Status W/U Status Risk Notes Problem Gastroesophageal reflux disease without esophagitis (031350306) Gastroesophageal reflux disease without esophagitis (K21.9) Active confirmed Problem Administration of vaccine to produce active immunity (02163969) Encounter for administration of vaccine (Z23) Active confirmed Problem Influenza vaccination given (26644055030671) Influenza vaccination given (Z23) Active confirmed Problem Gastroesophageal reflux disease with esophagitis (disorder) (912308911) Gastroesophageal reflux disease with esophagitis without hemorrhage (K21.00) Active confirmed Problem Primary hypertension (76513340) Primary hypertension (I10) Active confirmed Problem Primary osteoarthritis (563673438) 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 Plan Of Treatment No Information Insurance Providers Payer Name Payer Address Payer Phone Subscriber Number Group Number Insured Name Patient Relationship to Insured Coverage Start Date Coverage End Date Out of Network [employer] Medicare Replacement [address] [address] [place] [address] [id number] MICHEAL ZAVALA Self - patient is the insured Professional Credit [employer]MT [address] [place] [address] MICHEAL ZAVALA Self - patient is the insured [place] Medicare [address] [place] [phone] [id number] MICHEAL ZAVALA Self - patient is the insured Medical (General) History Medical History History ICD Code High Blood Pressure Arthritis Surgical History Surgery Date(Month/Year) hernia repair ear drum repair
--- OUTSIDE RECORDS SUMMARY | 2025-01-05 10:01 | XMS_ITS | Encounter Summary ---
Author Organization [facility] Address [address] [place] [address] Care Team Providers Care Deckhand Maintenance Name Role Phone Beltran, Marianne Mark APN Primary Care Provider [phone] Encounter Details Date Type Department Care Team (Latest Contact Info) Description 07/11/2005 Outpatient Historical [facility] [address] 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 FINDINGS: Bilateral oblique views of the cervical spine were performed (two images). The neural foramina are widely patent bilaterally. IMPRESSION: As above. [facility] D: [id number] Dictated By: Danis Monteiro M.D. Electronically Signed By: Danis Monteiro M.D. Date Signed: 07/12/05 Procedure Note 01/14/2009 BILATERAL OBLIQUE CERVICAL SPINE ON 07-11-05 AT 1436: INDICATION: Neck pain and bilateral hand numbness. FINDINGS: Bilateral oblique views of the cervical spine were performed (two images).The neural foramina are widely patent bilaterally. IMPRESSION: As above. [facility] D: [id number] Dictated By: Danis Monteiro M.D. Electronically Signed By: Danis Monteiro M.D. Date Signed: 07/12/05 Felice Burgess MD DIAGNOSTIC IMAGING ORDERABLES Final Result documented in this encounter Visit Diagnoses Diagnosis Cervical spinal stenosis- Primary Spinal stenosis in cervical region documented in this encounter Care Teams Deckhand Maintenance Relationship Specialty Start Date End Date Marianne Beltran APN [facility] [address] [address] PCP - General NURSE PRACTITIONER 05/03/18 documented as of this encounter
--- OUTSIDE RECORDS SUMMARY | 2025-01-05 10:01 | XMS_ITS | Encounter Summary ---
Author Organization [facility] Address [address] [place] [address] Care Team Providers Care Equity Sales Assistant Name Role Phone Marianne Beltran APN Primary Care Provider [phone] Encounter Details Date Type Department Care Team (Latest Contact Info) Description 07/11/2005 Outpatient Historical [facility] [address] [place] [address] Felice Burgess MD [address] [place] [address] Pain in Joint, Shoulder Region (Primary Dx) Social History Tobacco Use Types Packs/Day Years Used Date Smoking Tobacco: Never Assessed Sex and Gender Information Value Date Recorded Sex Assigned at Not on file Legal 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 [place] [address] PCP - General NURSE PRACTITIONER 05/03/18 documented as of this encounter
--- OUTSIDE RECORDS SUMMARY | 2025-01-05 10:01 | XMS_ITS | Clinical Summary ---
Author Organization [facility] Address [address] [place]: Epic Prelude ADT [facility] [address] Care Team Providers Care Cabin Supervisor Name Role Phone Beltran, Marianne Mark APN Primary Care Provider [phone] Allergies No known active allergies Medications tamsulosin (FLOMAX) 0.4 mg capsule Take 0.4 mg by mouth daily. 05/03/2018 Active lisinopriL (PRINIVIL) 20 mg tablet Take 20 mg by mouth daily. 02/15/2016 Active Active Problems Problem Noted Date Diagnosed [...] Years Used Date Smoking Tobacco: Former Cigarettes Q uit: 10/03/1979 Smokeless Tobacco: Never Alcohol Use Standard Drinks/Week Comments Yes 0 (1 standard drink = 0.6 oz pur e alcohol) Sex and Gender Information Value Date Recorded Sex Assigned at Not on file Legal Sex Male 9:32 AM SUPERVISOR PIPE MANUFACTURE Gender Identity Not on file Sexual Orientation Not on file Last Filed Vital Signs Vital Sign Reading Time Taken Comments Blood Pressure 133/79 05/03/2018 9:44 PM SUPERVISOR PIPE MANUFACTURE Pulse 88 05/03/2018 7:00 PM SUPERVISOR PIPE MANUFACTURE Temperature 36.2 C (97.1 F) 05/03/2018 9:44 PM SUPERVISOR PIPE MANUFACTURE Respiratory Rate 16 05/03/2018 9:44 PM SUPERVISOR PIPE MANUFACTURE Oxygen Saturation - - Inhaled Oxygen Concentration - - Weight 88.5 kg (195 lb) 05/03/2018 7:00 PM SUPERVISOR PIPE MANUFACTURE Height 182.9 cm (6') 05/03/2018 7:00 PM SUPERVISOR PIPE MANUFACTURE Body Mass Index 26.45 05/03/2018 7:00 PM SUPERVISOR PIPE MANUFACTURE Plan of Treatment Health Maintenance Due Date Last Done Comments DTAP/TDAP/TD VACCINES (1 - Tdap) 1956 ZOSTER VACCINE (1 of 2) 10/03/1987 PNEUMOCOCCAL VACCINE 50+ YEARS (2 of 2 - PCV) 10/05/19 10 10/04/2008 RSV VACCINE (60+ or ) (1 - 1-dose 75+ series) 2012 INFLUENZA VACCINE (#1) 2024 Care Teams Cabin Supervisor Relationship Specialty Start Date End Date Devin, Marianne Mark APN [facility] [address] [address] PCP - General NURSE PRACTITIONER 05/03/18
[2025-01-05 10:03] VITALS: BP 157/93; PULSE 76; RESP 16; TEMP 36.4; O2SAT 98; BMI 23.0
--- NOTE | 2025-01-05 10:10 | W.ED.SKABFB ---
HPI - Skin/Abscess/Foreign Bdy General: Chief complaint: Skin/Abscess/Foreign Body Stated complaint: Doc sent POS singles Time Seen by Provider: 01/05/25 10:09 History of Present Illness: 89-year-old male who 2 months ago was diagnosed with shingles the rash is not clearing up he has been persistently having intermittent pain in the distribution of where the shingles were at. No new lesions. He is currently on gabapentin for postherpetic neurology has also been given hydrocodone. He has seen ophthalmology there is no involvement of the eye. Patient appears to have a C2 nerve distribution. Associated symptoms: Deny chills or fever(s) Related Data Home Medications ?Medication ?Instructions ?Recorded ?Confirmed magnesium 250 mg tablet 500 mg PO DAILY 04/20/23 10/20/24 vitamin E 268 mg (400 unit) capsule 268 mg PO DAILY 04/20/23 10/20/24 Previous Rx's ?Medication ?Instructions ?Recorded methocarbamol 500 mg tablet 500 mg PO Q6H PRN Muscle spasms 04/20/23 #30 tabs umeclidinium 62.5 mcg/actuation 1 inh inhalation DAILY #30 ea 04/30/23 blister powder for inhalation (Incruse Ellipta) hydrocodone 5 mg-acetaminophen 325 1 tab PO Q4H PRN pain 7 days #42 05/02/23 mg tablet tabs celecoxib 200 mg capsule (Celebrex) 200 mg PO DAILY #30 caps 11/04/23 albuterol sulfate 90 mcg/actuation 2 puff inhalation QID PRN 03/17/24 aerosol inhaler shortness of breath or wheezing #6.7 grams azelastine 137 mcg (0.1 %) nasal 1 spray intranasal BID #30 mL 10/05/24 spray ciprofloxacin HCl 500 mg tablet 500 mg PO BID refractory OM #20 11/11/24 tabs prednisone 10 mg tablet 10 mg PO DAILY skin inlfammation 11/17/24 from shingles #14 tabs gabapentin 300 mg capsule 300 mg PO TID neuropathy from 12/28/24 shingles #90 caps prednisone 20 mg tablet 20 mg PO DAILY shingles 12/28/24 inflammation 14 days #14 tabs tramadol 100 mg tablet 100 mg PO TID PRN shingles pain 12/28/24 #45 tabs valacyclovir 1 gram tablet 1,000 mg PO TID shingles #21 tabs 12/28/24 (Valtrex) lisinopril 20 mg tablet See Rx Instructions .Route 01/07/25 .COMPLEX #90 tabs tamsulosin 0.4 mg capsule 0.4 mg PO BID BPH #180 caps 01/07/25 Allergies Allergy/AdvReac Type Severity Reaction Status Date / Time No Known Allergies Allergy Verified 12/28/24 09:57 Review of Systems Const: Denies: fever(s) or chills Card: Denies: chest pain Resp: Denies: dyspnea GI: Denies: abdominal pain : Denies: dysuria, urinary frequency or urinary urgency Musc: Denies: neck pain or back pain Skin/Breast: Denies: rash PFSH ED PFSH: Medical History Effusion, right knee Hernia Hypertension BPH (benign prostatic hyperplasia) History of perforated ear drum (~2012) Surgical History History of carpal tunnel surgery of right wrist History of left inguinal hernia repair (~1972) History of colonoscopy (~05/2018) normal Family History Mother Cancer breast Father Cancer thyroid Denies family history of Anesthesia complication Bleeding disorder Social History Smoking and tobacco/nicotine status: former use of tobacco/nicotine Quit status (tobacco/nicotine): has quit using Year quit tobacco: 1981 Former quit date comment: 0.5 ppd X 31 years Second hand smoke exposure: No Alcohol intake: current Alcohol intake frequency: holidays/special occasions only Alcohol type: beer Substance/Drug Use: never Adopted: No Caregiver/support person: Yes Lives independently: Yes Household members: spouse Housing: House Marital status: Number of children: 3 service: No Current occupational status: retired Current occupational exposures/hazards: No Pets and animals: No Sexually active: No Do you think of yourself as: Straight/Heterosexual Current gender identity: Male Physical Exam Const: COMMON NORMALS: no acute distress GENERAL APPEARANCE: cooperative and comfortable ORIENTATION/CONSCIOUSNESS: Yes awake, Yes oriented to person, Yes oriented to place and Yes oriented to time HENMT: COMMON NORMALS: normocephalic, atraumatic and hearing grossly normal bilaterally HEAD & SCALP: normocephalic and atraumatic Resp: COMMON NORMALS: normal respiratory effort, No retractions, No use of accessory muscles and clear to auscultation bilaterally AUSCULTATION: clear to auscultation bilaterally Cardio: COMMON NORMALS: regular rate, regular rhythm and No murmurs present (Cardio) RATE: regular rate RHYTHM: regular rhythm GI: COMMON NORMALS: Soft to palpation and No hepatosplenomegaly present AUSCULTATION: Yes normoactive bowel sounds PALPATION: Yes Soft to palpation, No Tenderness to palpation present (GI), No Guarding due to palpation present (GI) and Yes No hepatosplenomegaly present Extremity: COMMON NORMALS: normal to inspection, capillary refill normal, no clubbing, cyanosis or edema, no calf tenderness and no pedal edema Neuro: SENSORIUM/ORIENTATION: Yes oriented to person, Yes oriented to place and Yes oriented to time Skin: COMMON NORMALS: no rashes or lesions noted GENERAL SKIN EXAM: no rashes or lesions noted Course Vital Signs: Vital signs: Vital Signs Temperature 97.6 F 01/05/25 10:03 Pulse Rate 71 01/05/25 10:23 Respiratory Rate 16 01/05/25 10:03 Blood Pressure 157/93 01/05/25 10:23 Pulse Oximetry 98 01/05/25 10:23 Oxygen Delivery Me thod Room Air 01/05/25 10:03 MDM - Skin/Abscess/Foreign Bdy Medicial Decision Making Exam normal. Patient is having postherpetic neuralgia. His rash is clearing up as would be expected at this point did not appear to have any recurrence there is no vesicles left there is no sign of any secondary infections. Recommend he increase his gabapentin to 2 at night 1 in morning and at noon and follow-up with his primary care doctor. No radiology studies performed this visit Discharge Plan Discharge Patient Disposition: Home Clinical Impression: Postherpetic neuralgia Condition: Stable Prescriptions: No Action azelastine 137 mcg (0.1 %) spray,non-aerosol 1 spray intranasal BID Qty: 30 0RF Rx Instructions: administer into each nostril ciprofloxacin HCl 500 mg tablet 500 mg PO BID Qty: 20 0RF prednisone 10 mg tablet 10 mg PO DAILY Qty: 14 0RF albuterol sulfate 90 mcg/actuation HFA aerosol inhaler 2 puff inhalation QID PRN (Reason: shortness of breath or wheezing) Qty: 6.7 5RF prednisone 20 mg tablet 20 mg PO DAILY 14 Days Qty: 14 0RF tramadol 100 mg tablet 100 mg PO TID PRN (Reason: shingles pain) Qty: 45 3RF valacyclovir [Valtrex] 1 gram tablet 1,000 mg PO TID Qty: 21 0RF gabapentin 300 mg capsule 300 mg PO TID Qty: 90 0RF Incruse Ellipta 62.5 mcg/actuation blister with device 1 inh inhalation DAILY Qty: 30 6RF hydrocodone-acetaminophen 5-325 mg tablet 1 tab PO Q4H PRN (Reason: pain) 7 Days Qty: 42 0RF celecoxib [Celebrex] 200 mg capsule 200 mg PO DAILY Qty: 30 5RF tamsulosin 0.4 mg capsule 0.4 mg PO BID Qty: 180 1RF lisinopril 20 mg tablet See Rx Instructions .ROUTE .COMPLEX Qty: 90 3RF Dose Instruction: TAKE ONE TABLET BY MOUTH EVERY DAY FOR BLOOD PRESSURE Rx Instructions: TAKE ONE TABLET BY MOUTH EVERY DAY FOR BLOOD PRESSURE magnesium 250 mg Tablet 500 mg PO DAILY vitamin E 268 mg (400 unit) Capsule 268 mg PO DAILY methocarbamol 500 mg tablet 500 mg PO Q6H PRN (Reason: Muscle spasms) Qty: 30 0RF Discharge Orders: Discharge ED (Routine); Ordered 01/05/25 Ordered By: Ren Mccarty Referrals: Charlie Amaya DO [Primary Care Provider, Family Practice] Discharge Diet: Usual diet Discharge Activity: Resume usual activity Patient Instructions: Opioid Safety, Pain Management, Patient Portal & Regi Instructions Activity Restrictions/Additional Instructions: Thank you for choosing [facility] for your healthcare needs today. It is very important that you follow up as instructed or that you return to the Emergency Department should you have concerns or if your condition changes or worsens in any way. Emergency department visits are focused on emergent conditions, in some cases you may require further evaluation on an outpatient basis. You were seen in the emergency room with persistent pain after an episode of shingles. The rash is healing as would be expected in the timeframe of your infection. Unfortunately you develop some postherpetic neuralgia that this is when the nerves are irritated and continue to have pain sometimes for as much is a year after the infection. Your doctors already started you on gabapentin which can be helpful. You could increase your gabapentin to 1 tablet in the morning and at noon and 2 tablets at night. Follow-up with your doctor as soon as you are able to talk about other treatment strategies to manage the postherpetic neuralgia (Please note that included in your discharge packet is information concerning opioid safety and pain management. This information is given to all patients were discharged from the ER regardless of their discharge diagnosis or the medicines they usually take or are prescribed.) Print Language: Serbian Coding Level of Care Code ED Order Desk Caller for Natalie Cook
[2025-01-05 10:23] VITALS: BP 157/93; PULSE 71; O2SAT 98
== END 2025-01-05 10:30 | disposition home or self-care (01) ==
PROVIDERS: Emergency Provider Family Medicine; PCP Family Medicine
DX: B02.29 Other postherpetic nervous system involvement (principal); Z87.891 Personal history of nicotine dependence; I10 Essential (primary) hypertension
CPT/HCPCS: 99281

== ENCOUNTER 2025-02-07 01:01 | Observation (INO) | payer MEDICARE, SELFPAY ==
[2025-02-07] VITALS (17 sets, daily range): BP systolic 88–107; BP diastolic 56–87; PULSE 76–95; RESP 15–27; TEMP 36.3–36.7; O2SAT 91–97; BMI 23.7
--- OUTSIDE RECORDS SUMMARY | 2025-02-07 01:07 | XMS_ITS | Clinical Summary ---
Author Organization [facility] Address [address] [facility] [place] [address] Care Team Providers Care Supervisor Wash House Name Role Phone Beltran, Marianne Mark APN Primary Care Provider [phone] Allergies No known active allergies Medications lisinopril [...] on file Legal Sex Male 4:29 AM DERMATOLOGY NURSE PRACTITIONER Gender Identity Not on file Sexual Orientation Not on file Last Filed Vital Signs Vital Sign Reading Time Taken Comments Blood Pressure 133/79 05/03/2018 9:44 PM DERMATOLOGY NURSE PRACTITIONER Pulse 88 05/03/2018 7:00 PM DERMATOLOGY NURSE PRACTITIONER Temperature 36.2 C (97.1 F) 05/03/2018 9:44 PM DERMATOLOGY NURSE PRACTITIONER Respiratory Rate 16 05/03/2018 9:44 PM DERMATOLOGY NURSE PRACTITIONER Oxygen Saturation 96% 05/03/2018 9:44 PM DERMATOLOGY NURSE PRACTITIONER Inhaled Oxygen Concentration - - Weight 88.5 kg (195 lb) 05/03/2018 7:00 PM DERMATOLOGY NURSE PRACTITIONER Height 182.9 cm (6') 05/03/2018 7:00 PM DERMATOLOGY NURSE PRACTITIONER Body Mass Index 26.45 05/03/2018 7:00 PM DERMATOLOGY NURSE PRACTITIONER Plan of Treatment Health Maintenance Due Date Last Done Comments DTAP/TDAP/TD VACCINES (1 - Tdap) 1954 ZOSTER VACCINE (1 of 2) 10/03/1987 PNEUMOCOCCAL VACCINE 50+ YEARS (2 of 2 - PCV) 10/05/19 10 10/04/2008 RSV VACCINE (60+ or ) (1 - 1-dose 75+ series) 2012 INFLUENZA VACCINE (#1) 2024 Insurance [facility] Care Teams Supervisor Wash House Relationship Specialty Start Date End Date Marianne Beltran APN [address] [place] [id number] PCP - General NURSE PRACTITIONER 05/03/18
--- OUTSIDE RECORDS SUMMARY | 2025-02-07 01:07 | XMS_ITS | Clinical Summary ---
Author Organization [facility] Address [address] [place] [address] Dr. Laguerre: Epic Prelude ADT [facility] [address] Care Team Providers Care Patternator Name Role Phone Devin, Marianne Mark APN Primary Care Provider [phone] Allergies No known active allergies Medications tamsulosin [...] Used Date Smoking Tobacco: Former Cigarettes 0.5 Q uit: 10/03/1979 Smokeless Tobacco: Never Alcohol Use Standard Drinks/Week Comments Yes 0 (1 standard drink = 0.6 oz pur e alcohol) Sex and Gender Information Value Date Recorded Sex Assigned at Not on file Legal Sex Male 9:32 AM BREASTFEEDING PROGRAM COORDINATOR Gender Identity Not on file Sexual Orientation Not on file Last Filed Vital Signs Vital Sign Reading Time Taken Comments Blood Pressure 133/79 05/03/2018 9:44 PM BREASTFEEDING PROGRAM COORDINATOR Pulse 88 05/03/2018 7:00 PM BREASTFEEDING PROGRAM COORDINATOR Temperature 36.2 C (97.1 F) 05/03/2018 9:44 PM BREASTFEEDING PROGRAM COORDINATOR Respiratory Rate 16 05/03/2018 9:44 PM BREASTFEEDING PROGRAM COORDINATOR Oxygen Saturation - - Inhaled Oxygen Concentration - - Weight 88.5 kg (195 lb) 05/03/2018 7:00 PM BREASTFEEDING PROGRAM COORDINATOR Height 182.9 cm (6') 05/03/2018 7:00 PM BREASTFEEDING PROGRAM COORDINATOR Body Mass Index 26.45 05/03/2018 7:00 PM BREASTFEEDING PROGRAM COORDINATOR Plan of Treatment Health Maintenance Due Date Last Done Comments DTAP/TDAP/TD VACCINES (1 - Tdap) 1956 ZOSTER VACCINE (1 of 2) 10/03/1987 PNEUMOCOCCAL VACCINE 50+ YEARS (2 of 2 - PCV) 10/05/19 10 10/04/2008 RSV VACCINE (60+ or ) (1 - 1-dose 75+ series) 2012 INFLUENZA VACCINE (#1) 2024 Care Teams Patternator Relationship Specialty Start Date End Date Devin, Marianne Mark APN [address] [place] [id number] PCP - General NURSE PRACTITIONER 05/03/18
--- OUTSIDE RECORDS SUMMARY | 2025-02-07 01:07 | XMS_ITS | Encounter Summary ---
Author Organization [facility] Address [address] [place] [address] Care Team Providers Care Quantitative Researcher Name Role Phone Marianne Beltran APN Primary Care Provider [phone] Encounter Details Date Type Department Care Team (Latest Contact Info) Description 07/11/2005 Outpatient Historical [facility] [address] [address] [place] [address] Felice Burgess MD [address] [place] [address] Pain in Joint, Shoulder Region (Primary Dx) Social History Tobacco Use Types Packs/Day Years Used Date Smoking Tobacco: Never Assessed Sex and Gender Information Value Date Recorded Sex Assigned at Not on file Legal Sex Male 4:29 AM APPEALS WRITER Gender Identity Not on file Sexual Orientation Not on file documented as of this encounter Plan of Treatment Not on file documented as of this encounter Visit Diagnoses Diagnosis Pain in joint, shoulder region- Primary documented in this encounter Care Teams Quantitative Researcher Relationship Specialty Start Date End Date Marianne Beltran APN [address] [place] [address] PCP - General NURSE PRACTITIONER 05/03/18 documented as of this encounter
--- OUTSIDE RECORDS SUMMARY | 2025-02-07 01:07 | XMS_ITS | Patient Health Record ---
Author Organization [facility] Address [address] [place] [address] Care Team Providers Care Corrective Therapy Aide Name Role Phone Devin, Marianne Unavailable [phone] Allergies No Known Allergies Reason For Referral [...] Quadrivalent Pres Free IM Intramuscular 01/23/[address] [facility] [id number] 4 pt tolerated well/instructed to wait 20 [...] Notes Problem Gastroesophageal reflux disease without esophagitis (071089069) Gastroesophageal reflux disease without esophagitis (K21.9) Active confirmed Problem Administration of vaccine to produce active immunity (67545790) Encounter for administration of vaccine (Z23) Active confirmed Problem Influenza vaccination given (63132550905348) Influenza vaccination given (Z23) Active confirmed Problem Gastroesophageal reflux disease with esophagitis (disorder) (762673785) Gastroesophageal reflux disease with esophagitis without hemorrhage (K21.00) Active confirmed Problem Primary hypertension (58483723) Primary hypertension (I10) Active confirmed Problem Primary osteoarthritis (856851511) 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 Plan Of Treatment No Information Insurance Providers Payer Name Payer Address Payer Phone Subscriber Number Group Number Insured Name Patient Relationship to Insured Coverage Start Date Coverage End Date Out of Network [employer] Medicare Replacement [address] [address] [place] [address] [id number] MICHEAL ZAVALA Self - patient is the insured Professional Credit [employer]MT [address] [place] [address] MICHEAL ZAVALA Self - patient is the insured [place] Medicare [address] [place] [phone] [id number] MICHEAL ZAVALA Self - patient is the insured Medical (General) History Medical History History ICD Code High Blood Pressure Arthritis Surgical History Surgery Date(Month/Year) hernia repair ear drum repair
--- OUTSIDE RECORDS SUMMARY | 2025-02-07 01:07 | XMS_ITS | Encounter Summary ---
Author Organization [facility] Address [address] [place] [address] Care Team Providers Care Traverse Rod Assembler Name Role Phone Beltran, Marianne Mark APN Primary Care Provider [phone] Encounter Details Date Type Department Care Team (Latest Contact Info) Description 07/11/[address] [facility] [address] [place] [address] Felice Burgess MD [address] [address] Cervical Spinal Stenosis (Primary Dx) Social History Tobacco Use Types Packs/Day Years Used Date Smoking Tobacco: Never Assessed Sex and Gender Information Value Date Recorded Sex Assigned at Not on file Legal Sex Male 4:29 AM MICROSTRATEGY REPORTS DEVELOPER Gender Identity Not on file Sexual Orientation [...] are widely patent bilaterally. IMPRESSION: As above. [facility] D: 07-12-051940 Dictated By: Danis Monteiro M.D. Electronically Signed By: Danis Monteiro M.D. Date Signed: 07/12/05 Procedure Note 01/14/2009 BILATERAL OBLIQUE CERVICAL SPINE ON 07-11-05 AT 1436: INDICATION: Neck pain and bilateral hand numbness. FINDINGS: Bilateral oblique views of the cervical spine were performed (two images).The neural foramina are widely patent bilaterally. IMPRESSION: As above. [facility] D: 07-12-051940 Dictated By: Danis Monteiro M.D. Electronically Signed By: Danis Monteiro M.D. Date Signed: 07/12/05 Felice Burgess MD DIAGNOSTIC IMAGING ORDERABLES Final Result documented in this encounter Visit Diagnoses Diagnosis Cervical spinal stenosis- Primary Spinal stenosis in cervical region documented in this encounter Care Teams Traverse Rod Assembler Relationship Specialty Start Date End Date Marianne Beltran APN [facility] [address] [address] PCP - General NURSE PRACTITIONER 05/03/18 documented as of this encounter
--- NOTE | 2025-02-07 01:13 | ECG_ITS ---
[facility] Test Date: 2025-02-07 Pat Name: Keyon Mac Department: Room: 105 Gender: Male Food Prep Worker: : 1935 Requested By: Matthew Moscoso Order Number: [id number] Reggie MD: Will Escobar M.D. Measurements Intervals [place] Rate: 91 P: 32 [place]: 181 QRS: 14 QRSD: 90 T: 50 QT: 363 QTc: 447 Interpretive Statements SINUS RHYTHM LOW VOLTAGE IN THE LIMB LEADS Compared to ECG 04/20/2023 13:46:50 NO SIGNIFICANT CHANGE Electronically Signed On 02-07-2025 17:03:44 PROFESSOR OF SPECIAL EDUCATION by Will Escobar M.D. [email or web address]
--- NOTE | 2025-02-07 01:38 | XRR_ITS ---
PROCEDURE INFORMATION: Exam: XR Chest Exam date and time: 02/07/2025 1:46 AM Age: 89 years old Clinical indication: Cough and shortness of breath; Cough with SOB; Additional info: Cough SOB TECHNIQUE: Imaging protocol: Radiologic exam of the chest. Views: 1 view. COMPARISON: CR XR chest 1V portable [id number] 04/20/2023 1:24 PM FINDINGS: Lungs: Atelectasis at the lung bases. Mild retrocardiac opacity, correlate for pneumonia. Pleural spaces: Unremarkable. No pleural effusion. No pneumothorax. Heart/Mediastinum: Cardiomegaly. Bones/joints: Unremarkable. XR/XR chest 1V portable [id number] IMPRESSION: Mild retrocardiac opacity, correlate for pneumonia.
[2025-02-07] MEDS: cefTRIAXone 1,000 mg SDV 1000 MG IVP (01:54)
[2025-02-07 01:58] LABS: Hematocrit 40.5 % (37-53); Hemoglobin 13.50 g/dL (11.27-16.99); Mean Corpuscular HGB Conc 33.3 g/dL (30-55); Mean Corpuscular Hemoglobin 31.5 pg (27-33); Mean Corpuscular Volume 94.6 fl (82-101); Nucleated Red Blood Cells % 0 %; Platelet Count 255 10^3/cmm (157-399); Red Blood Count 4.28 10^6/uL (3.85-5.65); White Blood Count 17.04 10^3/uL (3.29-11.43)
[2025-02-07 02:18] LABS: Alanine Aminotransferase 18 U/L (0-41); Albumin Level 3.6 g/dL (3.5-5.2); Alkaline Phosphatase 62 U/L (40-130); Anion Gap 15.5 (5-19); Aspartate Amino Transferase 21 U/L (0-40); Blood Urea Nitrogen 23 mg/dL (8-23); Calcium 8.1 mg/dL (8.5-10.5); Carbon Dioxide 24 mmol/L (22-29); Chloride 101 mmol/L (98-107); Globulin 2.5 g/dL (1.3-4.6); Glucose 144 mg/dL (65-115); Magnesium 1.9 mg/dL (1.7-2.3); Osmolality Calculated 288 mOsm/kg (285-295); Potassium 4.5 mmol/L (3.5-5.1); Sodium 136 mmol/L (136-145); Total Protein 6.1 g/dL (6.6-8.7)
[2025-02-07 02:19] LABS: Lactic Sepsis W/Reflex 1.2 mmol/L (0.5-2.2)
--- NOTE | 2025-02-07 02:32 | W.ED.BACK ---
HPI - Back Pain/Injury General: Chief Complaint: Back Pain/Injury Stated Complaint: BACK PAIN Time Seen by Provider: 02/07/25 01:26 History of Present Illness: Patient is an 89-year-old male who presents today with multiple complaints. He reports having shingles which is driving him crazy. This morning, he experienced significant weakness and difficulty walking, stating he couldn't even walk and couldn't feel it. Patient also reports fever and a dry cough for approximately one week. He mentions that his son was sick a week ago and is still sick, suggesting possible viral transmission within the household. Patient also endorses abdominal pain. He denies vomiting or diarrhea. The physician noted that the patient's blood pressure and heart rate are a little low. Patient denies chest pain and does not use supplemental oxygen at baseline. He also denies urinary symptoms such as dysuria. Related Data Previous Rx's ?Medication ?Instructions ?Recorded gabapentin 300 mg capsule 300 mg PO TID neuropathy from 12/28/24 shingles #90 caps tramadol 100 mg tablet 100 mg PO TID PRN shingles pain 12/28/24 #45 tabs valacyclovir 1 gram tablet 1,000 mg PO TID shingles #21 tabs 12/28/24 (Valtrex) lisinopril 20 mg tablet See Rx Instructions .Route 01/07/25 .COMPLEX #90 tabs tamsulosin 0.4 mg capsule 0.4 mg PO BID BPH #180 caps 01/07/25 Allergies Allergy/AdvReac Type Severity Reaction Status Date / Time No Known Allergies Allergy Verified 02/07/25 01:07 [facility] ED [facility]: Medical History (Updated 02/07/25 @ 03:40 by Dread Sams MD) Effusion, right knee Hernia Hypertension BPH (benign prostatic hyperplasia) History of perforated ear drum (~2012) Surgical History History of carpal tunnel surgery of right wrist History of left inguinal hernia repair (~1972) History of colonoscopy (~05/2018) normal Family History Mother Cancer breast Father Cancer thyroid Denies family history of Anesthesia complication Bleeding disorder Social History (Updated 02/07/25 @ 03:39 by Dread Sams MD) Smoking and tobacco/nicotine status: former use of tobacco/nicotine Quit status (tobacco/nicotine): has quit using Year quit tobacco: 1981 Former quit date comment: 0.5 ppd X 31 years Second hand smoke exposure: No Alcohol intake: current Alcohol intake frequency: holidays/special occasions only Alcohol type: beer Substance/Drug Use: never Additional social history: Patient denies ongoing alcohol use currently he wants DO NOT RESUSCITATE status as discussed with Dread Sams MD on 02/07/2025. He and his son live together Adopted: No Caregiver/support person: Yes Lives independently: Yes Household members: spouse Housing: House Marital status: Number of children: 3 service: No Current occupational status: retired Current occupational exposures/hazards: No Pets and animals: No Sexually active: No Do you think of yourself as: Straight/Heterosexual Current gender identity: Male Physical Exam Const: GENERAL APPEARANCE: cooperative, ill appearing and frail appearing HENMT: COMMON NORMALS: normocephalic, atraumatic and Normal external nose present HEAD & SCALP: normocephalic and atraumatic FACE & SINUS: normal facial exam and face symmetric NOSE: Normal external nose present Eye: COMMON NORMALS: Equal, round and reactive pupils present and EOMs intact bilaterally PUPIL: Yes Equal, round and reactive pupils present Neck/C-Spine: GENERAL: Yes trachea midline Chest: CHEST: Yes Symmetrical chest wall rise Resp: COMMON NORMALS: normal respiratory effort, No retractions and clear to auscultation bilaterally EFFORT & INSPECTION: Yes tachypneic AUSCULTATION: clear to auscultation bilaterally Cardio: COMMON NORMALS: regular rate and regular rhythm RATE: regular rate RHYTHM: regular rhythm GI: COMMON NORMALS: Normal to inspection, nondistended, normoactive bowel sounds present Extremity: COMMON NORMALS: no pedal edema Neuro: JEOVANNY COMA SCALE: document GCS findings [place] coma scale eye opening: Spontaneous Jeovanny coma scale verbal response: Orientated Jeovanny coma scale motor response: Obey commands Jeovanny coma scale total score: 15 SENSORY EXAM: Yes extremities (intact) Psych: COMMON NORMALS: speech normal SPEECH: Yes normal speech Skin: COMMON NORMALS: no rashes or lesions noted GENERAL SKIN EXAM: no rashes or lesions noted Course Vital Signs: Vital signs: Vital Signs Temperature 98.1 F 02/07/25 03:54 Pulse Rate 90 12/14/25 03:54 Respiratory Rate 27 H 02/07/25 03:54 Blood Pressure 103/66 02/07/25 03:54 Pulse Oximetry 93 02/07/25 03:54 Oxygen Delivery Me thod Room Air 02/07/25 03:54 MDM - Back Pain/Injury Medical Decision Making Patient has been hypoxic. He is on oxygen now. He is afebrile. White blood cell count is 17. Lactic acid is normal. Chest x-ray shows a retrocardiac opacity. His CRP is 20. RSV testing is positive. He was covered with antibiotics prior to RSV coming back positive. He received nebulizer treatments here with some improvement. He is somewhat frail, and weak. He will be admitted for hypoxic respiratory failure with pneumonia and RSV status. Hospitalist agrees to admission. Labs 02/07/25 01:48 02/07/25 01:48 Radiology Impressions Chest X-Ray 02/07/25 01:38 IMPRESSION: Mild retrocardiac opacity, correlate for pneumonia. Laboratory Results WBC 17.04 10^3/uL (3.29-11.43) H 02/07/25 01:48 RBC 4.28 10^6/uL (3.85-5.65) 02/07/25 01:48 Hgb 13.50 g/dL (11.27-16.99) 02/07/25 01:48 Hct 40.5 % (37-53) 02/07/25 01:48 MCV 94.6 fl (82-101) 02/07/25 01:48 MCH 31.5 pg (27-33) 02/07/25 01:48 MCHC 33.3 g/dL (30-55) 02/07/25 01:48 RDW 15.3 % (12.1-15.1) H 02/07/25 01:48 Plt Count 255 10^3/cmm (157-399) 02/07/25 01:48 MPV 9.6 fL (7.4-10.4) 02/07/25 01:48 Neut % (Auto) 89.8 % 02/07/25 01:48 Lymph % (Auto) 2.9 % 02/07/25 01:48 Otoe % (Auto) 6.5 % 02/07/25 01:48 Eos % (Auto) 0.1 % 02/07/25 01:48 Baso % (Auto) 0.2 % 02/07/25 01:48 Neut # (Auto) 15.32 10^3/uL (1.8-7.7) H 02/07/25 01:48 Lymph # (Auto) 0.5 10^3/uL (0.8-4.8) L 02/07/25 01:48 Otoe # (Auto) 1.1 10^3/uL (0.2-0.9) H 02/07/25 01:48 Eos # (Auto) 0.0 10^3/uL (0.0-0.8) 02/07/25 01:48 Baso # (Auto) 0.0 10^3/uL (0.0-0.1) 02/07/25 01:48 Nucleated RBC % (auto) 0 % 02/07/25 01:48 Nucleated RBCs # 0.0 /100WBC 02/07/25 01:48 Sodium 136 mmol/L (136-145) 02/07/25 01:48 Potassium 4.5 mmol/L (3.5-5.1) 02/07/25 01:48 Chloride 101 mmol/L (98-107) 02/07/25 01:48 Carbon Dioxide 24 mmol/L (22-29) 02/07/25 01:48 Anion Gap 15.5 (5-19) 02/07/25 01:48 BUN 23 mg/dL (8-23) 02/07/25 01:48 Creatinine 1.2 mg/dL (0.7-1.2) 02/07/25 01:48 GFR Calculation Not Reportable 02/07/25 01:48 Glucose 144 mg/dL (65-115) H 02/07/25 01:48 Calculated Osmolality 288 mOsm/kg (285-295) 02/07/25 01:48 Lactic Acid 1.2 mmol/L (0.5-2.2) 02/07/25 01:48 Calcium 8.1 mg/dL (8.5-10.5) L 02/07/25 01:48 Magnesium 1.9 mg/dL (1.7-2.3) 02/07/25 01:48 Total Bilirubin 0.5 mg/dL (0.15-1.2) 02/07/25 01:48 AST 21 U/L (0-40) 02/07/25 01:48 ALT 18 U/L (0-41) 02/07/25 01:48 Alkaline Phosphatase 62 U/L (40-130) 02/07/25 01:48 Creatine Kinase 163 U/L (39-308) 02/07/25 01:48 C-Reactive Protein 20.1 mg/L (0.0-4.9) H 02/07/25 01:48 Total Protein 6.1 g/dL (6.6-8.7) L 02/07/25 01:48 Albumin 3.6 g/dL (3.5-5.2) 02/07/25 01:48 Globulin 2.5 g/dL (1.3-4.6) 02/07/25 01:48 Influenza A (PCR) Negative (Negative) 02/07/25 02:00 Influenza Type B (PCR) Negative (Negative) 02/07/25 02:00 RSV (PCR) Positive (Negative) A 02/07/25 02:00 SARS-CoV-2 (PCR) Negative (Negative) 02/07/25 02:00 All radiology interpretation(s) finalized by discharge Discharge Plan Discharge Patient Disposition: Admitted As Inpatient Admit Provider: Dread Sams Clinical Impression: Pneumonia, Acute hypoxic respiratory failure Condition: Fair Coding Level of Care Code ED Director Of Communications for Natalie Cook
[2025-02-07 02:49] LABS: SARS-CoV-2 PCR NEGATIVE (Negative)
[2025-02-07 02:51] LABS: Respiratory Syncytial Virus Ce POSITIVE (Negative)
--- NOTE | 2025-02-07 03:35 | PM.HP ---
Providers/Chief Complaint Admitting Physician: Dread Sams MD Primary Care Provider: Charlie Amaya DO Chief Complaint: BACK PAIN History of Present Illness Keyon Mac is a 89 year old male lives in [place] with his son. States his son brought something home and made him sick about a week ago. States today he could barely walk. He has had chills but not measured fevers or sweats. Patient says he has lost 15 pounds in the last 1 year. He has been battling shingles for the last 3 months on the left forehead takes valacyclovir as well as prednisone based on med reconciliation but patient could not recall the names of the medications. Patient was seen by Dr. Richmond and given sepsis bolus. White count was 17 patient also received Rocephin for retrocardiac left lung infiltrate per radiologist read. Patient had tachycardia and 87% room air saturation so was admitted with oxygen requirement. Review of Systems Narrative: General Notable weight loss 15 to 20 pounds last 1 year positive for chills no sweats or fever Cardiovascular negative for chest pain palpitations or edema Respiratory positive for cough dry nonproductive with some pleuritic pain GI no nausea vomiting he has had irregular bowel habits with diarrhea and constipation no dysuria hematuria but he has nocturia 3-4 times a night and is on Flomax Heme no history of blood clots in legs or lungs Malignancy positive only for skin cancer Medications/Allergies Home Medications ?Medication ?Instructions ?Recorded ?Confirmed ?Last Taken ?Type magnesium 250 mg tablet 500 mg PO DAILY 04/20/23 10/20/24 04/21/23 History methocarbamol 500 mg tablet 500 mg PO Q6H PRN Muscle spasms 04/20/23 10/20/24 Unknown Rx #30 tabs vitamin E 268 mg (400 unit) capsule 268 mg PO DAILY 04/20/23 10/20/24 04/21/23 History umeclidinium 62.5 mcg/actuation 1 inh inhalation DAILY #30 ea 04/30/23 10/20/24 Unknown Rx blister powder for inhalation (Incruse Ellipta) hydrocodone 5 mg-acetaminophen 325 1 tab PO Q4H PRN pain 7 days #42 05/02/23 10/20/24 Unknown Rx mg tablet tabs celecoxib 200 mg capsule (Celebrex) 200 mg PO DAILY #30 caps 11/04/23 10/20/24 Unknown Rx albuterol sulfate 90 mcg/actuation 2 puff inhalation QID PRN 03/17/24 10/20/24 Unknown Rx aerosol inhaler shortness of breath or wheezing #6.7 grams azelastine 137 mcg (0.1 %) nasal 1 spray intranasal BID #30 mL 10/05/24 10/20/24 Unknown Rx spray ciprofloxacin HCl 500 mg tablet 500 mg PO BID refractory OM #20 11/11/24 11/11/24 Unknown Rx tabs prednisone 10 mg tablet 10 mg PO DAILY skin inlfammation 11/17/24 11/17/24 Unknown Rx from shingles #14 tabs gabapentin 300 mg 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 mg PO TID neuropathy from 12/28/24 12/28/24 Unknown Rx shingles #90 caps prednisone 20 mg tablet 20 mg PO DAILY shingles 12/28/24 12/28/24 Unknown Rx inflammation 14 days #14 tabs tramadol 100 mg tablet 100 mg PO TID PRN shingles pain 12/28/24 12/28/24 Unknown Rx #45 tabs valacyclovir 1 gram tablet 1,000 mg PO TID shingles #21 tabs 12/28/24 12/28/24 Unknown Rx (Valtrex) lisinopril 20 mg tablet See Rx Instructions .Route 01/07/25 Unknown Rx .COMPLEX #90 tabs tamsulosin 0.4 mg capsule 0.4 mg PO BID BPH #180 caps 01/07/25 Unknown Rx Allergies Allergy/AdvReac Type Severity Reaction Status Date / Time No Known Allergies Allergy Verified 02/07/25 01:07 PFSH Acute PFSH: Medical History (Updated 02/07/25 @ 03:40 by Dread Sams MD) Effusion, right knee Hernia Hypertension BPH (benign prostatic hyperplasia) History of perforated ear drum (~2012) Surgical History History of carpal tunnel surgery of right wrist History of left inguinal hernia repair (~1972) History of colonoscopy (~05/2018) normal Family History Mother Cancer breast Father Cancer thyroid Denies family history of Anesthesia complication Bleeding disorder Social History (Updated 12/14/25 @ 03:39 by Dread Sams MD) Smoking and tobacco/nicotine status: former use of tobacco/nicotine Quit status (tobacco/nicotine): has quit using Year quit tobacco: 1981 Former quit date comment: 0.5 ppd X 31 years Second hand smoke exposure: No Alcohol intake: current Alcohol intake frequency: holidays/special occasions only Alcohol type: beer Substance/Drug Use: never Additional social history: Patient denies ongoing alcohol use currently he wants DO NOT RESUSCITATE status as discussed with Dread Sams MD on 02/07/2025. He and his son live together Adopted: No Caregiver/support person: Yes Lives independently: Yes Household members: spouse Housing: House Marital status: Number of children: 3 service: No Current occupational status: retired Current occupational exposures/hazards: No Pets and animals: No Sexually active: No Do you think of yourself as: Straight/Heterosexual Current gender identity: Male Vitals/I&O/Wt Last Vital Signs Temp 97.5 F L 02/07/25 01:02 Pulse 88 02/07/25 03:09 Resp 20 H 02/07/25 02:45 BP 107/87 02/07/25 03:09 Pulse Ox 97 02/07/25 03:09 02/06/25 02/06/25 02/07/25 14:59 22:59 06:59 Intake Total 0 / 0 Balance 0 / 0 Weight last 48 hrs Weight 79.379 kg Physical Exam Narrative: General well-developed well-nourished male with no acute cardiopulmonary distress Patient is weak and requires assistance to sit up for exam CV distant heart sounds very hard to auscultate rhythm shows sinus rhythm on monitor Lungs few scattered rhonchi moderate air movement Abdomen positive bowel tones soft with no tenderness Calves no tenderness cords pretrip edema Skin warm mild damp not overtly diaphoretic patient with healing rash over the left forehead which she states this is shingles 6 Data 02/07/25 01:48 02/07/25 01:48 Micro: Microbiology 02/07/25 01:50 Blood Culture - Preliminary Blood SPECIMEN COLLECTED 02/07/25 01:48 Blood Culture - Preliminary Blood SPECIMEN COLLECTED A&P Assessment and plan 1. RSV (respiratory syncytial virus pneumonia): Will treat with Decadron 4 mg daily starting now. Patient will have nebulizers oxygen supportive care repeat labs to look for resolution of his white count. Radiologist reads possible left retrocardiac infiltrate but this is pretty mild and hard to appreciate on my screen 2. Acute hypoxic respiratory failure: Supportive care with oxygen and treat with Decadron 3. Shingles: I do not believe the patient is still taking valacyclovir as listed on his med reconciliation but he has had shingles for 4 months so likely no longer needs to take it PDMP PDMP Reviewed: Not Reviewed Attestations Medical Necessity Statement*: Patient is admitted to the hospital with hypoxic respiratory failure and will require greater than 2 midnights Coding Level of Care Code 18675 Diagnoses RSV (respiratory syncytial virus pneumonia) J12.1 Acute hypoxic respiratory failure J96.01 Shingles B02.9 Time Spent (min) 56
[2025-02-07 07:11] LABS: Glucose Urine UA Negative (Normal); Nitrate Urine Negative (Negative); Specific Gravity, Urine 1.017 (1.005-1.030)
[2025-02-07 07:14] LABS: Add Urine Microscopic? YES
[2025-02-08] VITALS (10 sets, daily range): BP systolic 112–153; BP diastolic 65–96; PULSE 71–140; RESP 14–22; TEMP 36.2–36.6; O2SAT 94–98
[2025-02-08 03:43] LABS: Hematocrit 35.6 % (37-53); Hemoglobin 11.60 g/dL (11.27-16.99); Mean Corpuscular HGB Conc 32.6 g/dL (30-55); Mean Corpuscular Hemoglobin 31.8 pg (27-33); Mean Corpuscular Volume 97.5 fl (82-101); Nucleated Red Blood Cells % 0 %; Platelet Count 239 10^3/cmm (157-399); Red Blood Count 3.65 10^6/uL (3.85-5.65); White Blood Count 10.50 10^3/uL (3.29-11.43)
[2025-02-08 04:34] LABS: Anion Gap 9.8 (5-19); Blood Urea Nitrogen 18 mg/dL (8-23); Calcium 7.5 mg/dL (8.5-10.5); Carbon Dioxide 25 mmol/L (22-29); Chloride 109 mmol/L (98-107); Glucose 106 mg/dL (65-115); Osmolality Calculated 292 mOsm/kg (285-295); Potassium 3.8 mmol/L (3.5-5.1); Sodium 140 mmol/L (136-145); Thyroid Stimulating Hormone 2.00 uIU/mL (0.27-4.20)
--- NOTE | 2025-02-08 07:34 | P.PN_ITS ---
Subjective 2 Subjective: Patient is a very pleasant 89-year-old male seen and examined at bedside on hospital rounds today. Patient sitting up in bed eating breakfast, much improved respirations, continues to have bodily weakness but denies new or worsening symptoms. In review of vital signs today are stable, patient room air saturation greater than 95%. WBC 10.50, hemoglobin 11.60, creatinine 0.8. Will continue current interventions inpatient, transition to oral antibiotics within the next 24 hours. Pending physical therapy/Occupational Therapy evaluation and recommendations. Greatly appreciate case management and discharge planning. All questions and concerns addressed with the patient bedside today. Vitals/I&O/Wt Last Vital Signs Temp 97.7 F 02/08/25 04:00 Pulse 86 02/08/25 04:00 Resp 21 H 02/08/25 04:00 BP 119/71 02/08/25 04:00 Pulse Ox 95 02/08/25 04:00 O2 Del Method Room Air 02/08/25 04:00 02/07/25 02/08/25 02/08/25 22:59 06:59 14:59 Intake Total 1092.5 / 1332.5 992.5 / 2325.0 Balance 1092.5 / 982.5 992.5 / 1975.0 Weight last 48 hrs Weight 81 kg Weight 81 kg Weight 77.564 kg Weight 77.7 kg Weight 79.379 kg Physical Exam 2 Narrative: General well-developed well-nourished male with no acute cardiopulmonary distress Patient continues to have generalized weakness. CV distant heart sounds very hard to auscultate rhythm shows sinus rhythm on monitor Lungs few scattered rhonchi, diminished at the bases Abdomen positive bowel tones soft with no tenderness Calves no tenderness cords pretrip edema Skin warm/dry, with healing rash over the left forehead which she states this is shingles Data 02/08/25 02:23 02/08/25 02:23 Micro: Microbiology 02/07/25 01:50 Blood Culture - Preliminary Blood NEGATIVE TO DATE 02/07/25 01:48 Blood Culture - Preliminary Blood NEGATIVE TO DATE A&P Assessment and plan 1. Pneumonia of both lower lobes due to infectious organism: 2. RSV (respiratory syncytial virus pneumonia): 3. Acute hypoxic respiratory failure: 4. Shingles: 5. BPH (benign prostatic hyperplasia): Plan: Community-acquired pneumonia Acute hypoxic respiratory failure, weaned oxygen - WBC 17.04--<10.50 - Treated in ER with - Continue antibiotics with rocephin and doxycycline - Continue respiratory interventions with supplemental oxygen and duoneb - Pending sputum culture - Blood Culture x 2 NGTD RSV - Continue supportive care Shingles - Continue supportive measures with gabapentin GERD - Continue Pepcid BPH - Continue Flomax VTE PPX: Lovenox GI PPX: Pepcid Code Status: Allow Natural PDMP PDMP Reviewed: Not Reviewed Attestations 2 Medical Necessity Statement*: Continued inpatient interventions crossing 2 midnights with community-acquired pneumonia, RSV, hypoxic respiratory failure with continued IV antibiotics, supplemental oxygen, and complex medical management. Coding Level of Care Code 65898 Diagnoses Pneumonia of both lower lobes due to infectious organism J18.9 Pneumonia type: due to unspecified organism Laterality: bilateral Lung location: lower lobe of lung RSV (respiratory syncytial virus pneumonia) J12.1 Acute hypoxic respiratory failure J96.01 Shingles B02.9 BPH (benign prostatic hyperplasia) N40.0
--- NOTE | 2025-02-08 08:42 | PC.CHAP ---
Pastoral Care Encounter/Spiritual Assessment Type of Contact [] Declined aircraft seat upholsterer visit [] Patient/Family/Request visit [] Outpatient visit [] Follow-up visit [] Physician referral [] Code/Alert [x] Routine visit [] Staff referral [] Actively dying [] Patient sleeping [] Family support [] [] Out of room [] Palliative care [] [] Receiving care in room [] Pre-surgical visit [] Trauma [] Long length of stay [] ICU visit [] Other: Relational/Emotional Strength [] Patient feels connected with others/family/visitors/staff [] Distress [] Loneliness/isolation [] Abandonment Spirituality of Patient [] Person of Saritha [] Attends Methodist of their Saritha [] Believes in Prayer [] Reads Bible or Quaker materials [] There are Spiritual issues to be addressed Wafer Machine Operator Interventions [x] Prayer [] Active listening [] Non-anxious presence [] Spiritual/emotional support [] Crisis/trauma care [] Spiritual counseling [] Bereavement support [] Provided bereavement packet [] Provided Bible/devotional materials [] Provided toy/stuffed animal, coloring book to patient or family member [] Provided Communion [] Anointing/Presto [] Salvation [] Completed spiritual assessment [] Other: Impact on Illness or Injury [] Angry [] Fearful [] Anxious [] Often cries [] Exhaustion [] Unable to work [] Unable to attend episcopalian [] Unable to walk/stand [] Unable to read [] Unable to drive [] Unable to eat/drink [] Unable to sleep [] Unable to be with family [] Patient intubated [] Other: Summary precaution Time spent with patient
[2025-02-08] MEDS: cefTRIAXone 1,000 mg SDV 1000 MG IVP (09:29)
[2025-02-09 03:52] VITALS: BP 141/87; PULSE 76; RESP 18; TEMP 36.4
[2025-02-09] MEDS: cefTRIAXone 1,000 mg SDV 1000 MG IVP (05:55)
[2025-02-09 07:23] VITALS: BP 144/91; PULSE 79; RESP 14; TEMP 36.4; O2SAT 96
[2025-02-09 08:00] VITALS: PULSE 84; RESP 18; O2SAT 96
[2025-02-09 08:14] LABS: Hematocrit 38.2 % (37-53); Hemoglobin 12.80 g/dL (11.27-16.99); Mean Corpuscular HGB Conc 33.5 g/dL (30-55); Mean Corpuscular Hemoglobin 31.7 pg (27-33); Mean Corpuscular Volume 94.6 fl (82-101); Nucleated Red Blood Cells % 0 %; Platelet Count 248 10^3/cmm (157-399); Red Blood Count 4.04 10^6/uL (3.85-5.65); White Blood Count 8.82 10^3/uL (3.29-11.43)
--- NOTE | 2025-02-09 08:39 | PM.DCS ---
Discharge Providers Date of Admission: 02/07/25 02:33 Date of Discharge: February 09, 2025 Attending Provider at Admission: Dread Sams MD Attending Provider at Discharge: Desire Boone NP Primary Care Provider: Charlie Amaya DO Diagnoses at Discharge Discharge Diagnosis 1. Pneumonia of both lower lobes due to infectious organism: 2. RSV (respiratory syncytial virus pneumonia): 3. Acute hypoxic respiratory failure: 4. Shingles: 5. BPH (benign prostatic hyperplasia): Reason for Visit Reason for Visit: BACK PAIN Brief History: Admission: Keyon Mac is a 89 year old male lives in [place] with his son. States his son brought something home and made him sick about a week ago. States today he could barely walk. He has had chills but not measured fevers or sweats. Patient says he has lost 15 pounds in the last 1 year. He has been battling shingles for the last 3 months on the left forehead takes valacyclovir as well as prednisone based on med reconciliation but patient could not recall the names of the medications. Patient was seen by Dr. Richmond and given sepsis bolus. White count was 17 patient also received Rocephin for retrocardiac left lung infiltrate per radiologist read. Patient had tachycardia and 87% room air saturation so was admitted with oxygen requirement. Hospital Course Hospital Course Community-acquired pneumonia Acute hypoxic respiratory failure, weaned oxygen - WBC 17.04--<10.50--<8.82 - Treated in ER with - Continue antibiotics with rocephin and doxycycline - Continue respiratory interventions with supplemental oxygen and duoneb - Pending sputum culture - Blood Culture x 2 NGTD RSV - Continue supportive care Shingles - Continue supportive measures with gabapentin GERD - Continue Pepcid BPH - Continue Flomax Discharge: Discharged home in stable condition in care of family to continue oral Cefdinir and doxycycline, steroids x 5 days. Advised patient to continue as needed nebulizer treatments, prescribed nebulizer and nebs at discharge. Also advised patient to follow-up with primary care provider in 1 to 2 days of discharge. All questions and concerns addressed to the patient prior to discharge. Physical Exam Narrative: General well-developed well-nourished male with no acute cardiopulmonary distress Patient continues to have generalized weakness. CV distant heart sounds very hard to auscultate rhythm shows sinus rhythm on monitor Lungs few scattered rhonchi, diminished at the bases Abdomen positive bowel tones soft with no tenderness Calves no tenderness cords pretrip edema Skin warm/dry, with healing rash over the left forehead which she states this is shingles Discharge Data Studies Completed and Pending Completed Studies During Hospitalization Category Date Time Status XR chest 1V portable [id number] Stat Exams 02/07/25 01:38 Completed Pending at discharge Category Date Time Status Blood Culture Stat Lab 02/07/25 01:50 Results Complete Blood Count w/Auto AM LABS Lab 02/10/25 04:00 Ordered Complete Blood Count w/Auto AM LABS Lab 02/11/25 04:00 Ordered Comprehensive Metabolic Panel AM LABS Lab 02/09/25 08:00 Received Comprehensive Metabolic Panel AM LABS Lab 02/10/25 04:00 Ordered Comprehensive Metabolic Panel AM LABS Lab 02/11/25 04:00 Ordered Magnesium AM LABS Lab 02/09/25 08:00 Received Sputum Culture and Gram Stain Routine Lab 02/07/25 07:35 Uncollected Radiology Impressions Chest X-Ray 02/07/25 01:38 IMPRESSION: Mild retrocardiac opacity, correlate for pneumonia. Laboratory Results WBC 8.82 10^3/uL (3.29-11.43) 02/09/25 08:00 RBC 4.04 10^6/uL (3.85-5.65) 02/09/25 08:00 Hgb 12.80 g/dL (11.27-16.99) 02/09/25 08:00 Hct 38.2 % (37-53) 02/09/25 08:00 MCV 94.6 fl (82-101) 02/09/25 08:00 MCH 31.7 pg (27-33) 02/09/25 08:00 MCHC 33.5 g/dL (30-55) 02/09/25 08:00 RDW 15.6 % (12.1-15.1) H 02/09/25 08:00 Plt Count 248 10^3/cmm (157-399) 02/09/25 08:00 MPV 9.4 fL (7.4-10.4) 02/09/25 08:00 Neut % (Auto) 79.4 % 02/09/25 08:00 Lymph % (Auto) 11.5 % 02/09/25 08:00 Beckham % (Auto) 7.1 % 02/09/25 08:00 Eos % (Auto) 1.1 % 02/09/25 08:00 Baso % (Auto) 0.3 % 02/09/25 08:00 Neut # (Auto) 7.00 10^3/uL (1.8-7.7) 02/09/25 08:00 Lymph # (Auto) 1.0 10^3/uL (0.8-4.8) 02/09/25 08:00 Beckham # (Auto) 0.6 10^3/uL (0.2-0.9) 02/09/25 08:00 Eos # (Auto) 0.1 10^3/uL (0.0-0.8) 02/09/25 08:00 Baso # (Auto) 0.0 10^3/uL (0.0-0.1) 02/09/25 08:00 Nucleated RBC % (auto) 0 % 02/09/25 08:00 Nucleated RBCs # 0.0 /100WBC 02/09/25 08:00 Sodium 140 mmol/L (136-145) 02/08/25 02:23 Potassium 3.8 mmol/L (3.5-5.1) 02/08/25 02:23 Chloride 109 mmol/L (98-107) H 02/08/25 02:23 Carbon Dioxide 25 mmol/L (22-29) 02/08/25 02:23 Anion Gap 9.8 (5-19) 02/08/25 02:23 BUN 18 mg/dL (8-23) 02/08/25 02:23 Creatinine 0.8 mg/dL (0.7-1.2) 02/08/25 02:23 GFR Calculation Not Reportable 02/08/25 02:23 Glucose 106 mg/dL (65-115) 02/08/25 02:23 Calculated Osmolality 292 mOsm/kg (285-295) 02/08/25 02:23 Lactic Acid 1.2 mmol/L (0.5-2.2) 02/07/25 01:48 Calcium 7.5 mg/dL (8.5-10.5) L 02/08/25 02:23 Magnesium 1.9 mg/dL (1.7-2.3) 02/07/25 01:48 Total Bilirubin 0.5 mg/dL (0.15-1.2) 02/07/25 01:48 AST 21 U/L (0-40) 02/07/25 01:48 ALT 18 U/L (0-41) 02/07/25 01:48 Alkaline Phosphatase 62 U/L (40-130) 02/07/25 01:48 Creatine Kinase 163 U/L (39-308) 02/07/25 01:48 C-Reactive Protein 20.1 mg/L (0.0-4.9) H 02/07/25 01:48 Total Protein 6.1 g/dL (6.6-8.7) L 02/07/25 01:48 Albumin 3.6 g/dL (3.5-5.2) 02/07/25 01:48 Globulin 2.5 g/dL (1.3-4.6) 02/07/25 01:48 TSH 2.00 uIU/mL (0.27-4.20) 02/08/25 02:23 Urine Color Yellow (Yellow) 02/07/25 07:00 Urine Appearance Clear (CLEAR) 02/07/25 07:00 Urine pH 6.0 (5-7) 02/07/25 07:00 Ur Specific [place] 1.017 (1.005-1.030) 02/07/25 07:00 Urine Protein Trace (Negative) A 02/07/25 07:00 Urine Glucose (UA) Negative (Normal) 02/07/25 07:00 Urine Ketones Trace (Negative) 02/07/25 07:00 Urine Blood Negative (Negative) 02/07/25 07:00 Urine Nitrate Negative (Negative) 02/07/25 07:00 Urine Bilirubin Negative (Negative) 02/07/25 07:00 Urine Urobilinogen 1.0 mg/dL (Negative) 02/07/25 07:00 Ur Leukocyte Esterase Negative (Negative) 02/07/25 07:00 Urine RBC 0-2 /hpf (0-2) 02/07/25 07:00 Urine WBC 0-5 /hpf (0-5) 02/07/25 07:00 Ur Squamous Epith Cells 0-5 /hpf (0-5) 02/07/25 07:00 Amorphous Sediment Not Reportable 02/07/25 07:00 Urine Bacteria None seen /hpf (NONE) 02/07/25 07:00 Hyaline Casts 0.81 /lpf 02/07/25 07:00 Influenza A (PCR) Negative (Negative) 02/07/25 02:00 Influenza Type B (PCR) Negative (Negative) 02/07/25 02:00 RSV (PCR) Positive (Negative) A 02/07/25 02:00 SARS-CoV-2 (PCR) Negative (Negative) 02/07/25 02:00 Vitals Last Vital Signs Temp 97.5 F L 02/09/25 07:23 Pulse 84 02/09/25 08:00 Resp 18 02/09/25 08:00 BP 144/91 02/09/25 07:23 Pulse Ox 96 02/09/25 08:00 O2 Del Method Room Air 02/09/25 08:00 Discharge Plan Discharge Patient Disposition: Home Condition: Good Prescriptions: New doxycycline monohydrate 100 mg Tablet 100 mg PO BID 5 Days Qty: 10 0RF famotidine 20 mg Tablet 20 mg PO BID 14 Days Qty: 28 0RF ipratropium bromide 0.02 % Solution 0.5 mg inhalation QID.RESPIRATORY 30 Days Qty: 300 0RF albuterol sulfate 2.5 mg/0.5 mL Solution For Nebulization 2.5 mg inhalation Q6H.RESP PRN (Reason: Shortness Of Breath) 30 Days Qty: 30 0RF cefdinir 300 mg capsule 300 mg PO BID 5 Days Qty: 10 0RF dexamethasone 6 mg tablet 6 mg PO DAILY 7 Days Qty: 7 0RF Continued tramadol 100 mg tablet 100 mg PO TID PRN (Reason: shingles pain) Qty: 45 3RF valacyclovir [Valtrex] 1 gram tablet 1,000 mg PO TID Qty: 21 0RF tamsulosin 0.4 mg capsule 0.4 mg PO BID Qty: 180 1RF lisinopril 20 mg tablet See Rx Instructions .ROUTE .COMPLEX Qty: 90 3RF Dose Instruction: TAKE ONE TABLET BY MOUTH EVERY DAY FOR BLOOD PRESSURE Rx Instructions: TAKE ONE TABLET BY MOUTH EVERY DAY FOR BLOOD PRESSURE No Action gabapentin 300 mg capsule 300 mg PO TID Qty: 90 0RF Discharge Order = DC NOW: Discharge Order (Routine); Ordered 02/09/25 Ordered By: Desire Boone Other Ambulatory Orders: DME: Nebulizer with Neb Kit (Order) Location: None Selected Ordered By: Desire Boone Referrals: [facility] DO [facility] - 02/12/25 10:40 am Discharge Diet: Advance as tolerated Discharge Activity: Resume usual activity Patient Instructions: Famotidine (By mouth), Doxycycline (By mouth), Albuterol (By breathing), Ipratropium (By breathing) (Atrovent HFA), Dexamethasone (By mouth), Cefdinir (By mouth) (Omnicef), Shingles (DC), RSV (Respiratory Syncytial Virus) Infection (DC), Opioid Safety, Pneumonia Stoplight, Patient Portal & Regi Instructions Discharge Attestations Time Spent in Discharge Care*: greater than 30 min Quality Metrics Clinical Quality Measures [ No reported AMI, CVA or VTE this stay] Coding Level of Care Code 61164 Diagnoses Pneumonia of both lower lobes due to infectious organism J18.9 Laterality: bilateral Lung location: lower lobe of lung Pneumonia type: due to unspecified organism RSV (respiratory syncytial virus pneumonia) J12.1 Acute hypoxic respiratory failure J96.01 Shingles B02.9 BPH (benign prostatic hyperplasia) N40.0
[2025-02-09 08:44] LABS: Alanine Aminotransferase 14 U/L (0-41); Albumin Level 3.0 g/dL (3.5-5.2); Alkaline Phosphatase 53 U/L (40-130); Anion Gap 14.8 (5-19); Aspartate Amino Transferase 14 U/L (0-40); Blood Urea Nitrogen 11 mg/dL (8-23); Calcium 7.9 mg/dL (8.5-10.5); Carbon Dioxide 21 mmol/L (22-29); Chloride 109 mmol/L (98-107); Globulin 2.4 g/dL (1.3-4.6); Glucose 101 mg/dL (65-115); Magnesium 2.1 mg/dL (1.7-2.3); Osmolality Calculated 292 mOsm/kg (285-295); Potassium 3.8 mmol/L (3.5-5.1); Sodium 141 mmol/L (136-145); Total Protein 5.4 g/dL (6.6-8.7)
--- NOTE | 2025-02-09 10:11 | PC.NURSE ---
called pt's son Jhonatan twice but no answer. left a voicemail. informed case mgt.
[2025-02-09 11:49] VITALS: PULSE 90; O2SAT 96
--- OUTSIDE RECORDS SUMMARY | 2025-02-15 09:19 | XMS_ITS | Patient Health Record ---
Author Organization [facility] Address [address] [place] [address] Care Team Providers Care Manager Metal Name Role Phone Devin, Marianne Unavailable [phone] Allergies No Known Allergies Reason For Referral [...] Quadrivalent Pres Free IM Intramuscular 01/23/2022 Administered [facility] [phone] pt tolerated well/instructed to wait 20 [...] Notes Problem Gastroesophageal reflux disease without esophagitis (606195613) Gastroesophageal reflux disease without esophagitis (K21.9) Active confirmed Problem Administration of vaccine to produce active immunity (06056510) Encounter for administration of vaccine (Z23) Active confirmed Problem Influenza vaccination given (80829664246739) Influenza vaccination given (Z23) Active confirmed Problem Gastroesophageal reflux disease with esophagitis (disorder) (906085152) Gastroesophageal reflux disease with esophagitis without hemorrhage (K21.00) Active confirmed Problem Primary hypertension (63623864) Primary hypertension (I10) Active confirmed Problem Primary osteoarthritis (639721866) 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 Plan Of Treatment No Information Insurance Providers Payer Name Payer Address Payer Phone Subscriber Number Group Number Insured Name Patient Relationship to Insured Coverage Start Date Coverage End Date Out of Network [employer] Medicare Replacement [address] [address] [place] [address] [id number] MICHEAL ZAVALA Self - patient is the insured Professional Credit MGMT [address] [place] [address] MICHEAL ZAVALA Self - patient is the insured [place] Medicare [address] [place] [phone] [id number] MICHEAL ZAVALA Self - patient is the insured Medical (General) History Medical History History ICD Code High Blood Pressure Arthritis Surgical History Surgery Date(Month/Year) ear drum repair hernia repair
--- OUTSIDE RECORDS SUMMARY | 2025-02-15 09:19 | XMS_ITS | Clinical Summary ---
Author Organization [facility] Address [address] [place] [address] Dr. 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 Gender Identity Not on file Sexual Orientation Not on file Last Filed Vital Signs Vital Sign Reading Time Taken Comments Blood Pressure 133/79 05/03/2018 9:44 PM IRRIGATION EQUIPMENT INSTALLER Pulse 88 05/03/2018 7:00 PM IRRIGATION EQUIPMENT INSTALLER Temperature 36.2 C (97.1 F) 05/03/2018 9:44 PM IRRIGATION EQUIPMENT INSTALLER Respiratory Rate 16 05/03/2018 9:44 PM IRRIGATION EQUIPMENT INSTALLER Oxygen Saturation - - Inhaled Oxygen Concentration - - Weight 88.5 kg (195 lb) 05/03/2018 7:00 PM IRRIGATION EQUIPMENT INSTALLER Height 182.9 cm (6') 05/03/2018 7:00 PM IRRIGATION EQUIPMENT INSTALLER Body Mass Index 26.45 05/03/2018 7:00 PM IRRIGATION EQUIPMENT INSTALLER Plan of Treatment Health Maintenance Due Date Last Done Comments DTAP/TDAP/TD VACCINES (1 - Tdap) 1954 ZOSTER VACCINE (1 of 2) 10/03/1987 PNEUMOCOCCAL VACCINE 50+ YEARS (2 of 2 - PCV) 10/05/19 10 10/04/2008 RSV VACCINE (60+ or ) (1 - 1-dose 75+ series) 2012 INFLUENZA VACCINE (#1) 2024 Care Teams Typewriter Assembly And Parts Inspector Relationship Specialty Start Date End Date Devin, Marianne Mark APN [address] [place] [id number] PCP - General NURSE PRACTITIONER 05/03/18
--- OUTSIDE RECORDS SUMMARY | 2025-02-15 09:19 | XMS_ITS | Clinical Summary ---
Author Organization [facility] Address 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 Gender Identity Not on file Sexual Orientation Not on file Last Filed Vital Signs Vital Sign Reading Time Taken Comments Blood Pressure 133/79 05/03/2018 9:44 PM LOGISTICS TEAM LEAD Pulse 88 05/03/2018 7:00 PM LOGISTICS TEAM LEAD Temperature 36.2 C (97.1 F) 05/03/2018 9:44 PM LOGISTICS TEAM LEAD Respiratory Rate 16 05/03/2018 9:44 PM LOGISTICS TEAM LEAD Oxygen Saturation 96% 05/03/2018 9:44 PM LOGISTICS TEAM LEAD Inhaled Oxygen Concentration - - Weight 88.5 kg (195 lb) 05/03/2018 7:00 PM LOGISTICS TEAM LEAD Height 182.9 cm (6') 05/03/2018 7:00 PM LOGISTICS TEAM LEAD Body Mass Index 26.45 05/03/2018 7:00 PM LOGISTICS TEAM LEAD Plan of Treatment Health Maintenance Due Date Last Done Comments DTAP/TDAP/TD VACCINES (1 - Tdap) 1954 ZOSTER VACCINE (1 of 2) 10/03/1987 PNEUMOCOCCAL VACCINE 50+ YEARS (2 of 2 - PCV) 10/05/19 10 10/04/2008 RSV VACCINE (60+ or ) (1 - 1-dose 75+ series) 2012 INFLUENZA VACCINE (#1) 2024 Insurance [facility] Care Teams Sculpture Instructor Relationship Specialty Start Date End Date Marianne Beltran APN [address] [place] [id number] PCP - General NURSE PRACTITIONER 05/03/18
--- OUTSIDE RECORDS SUMMARY | 2025-02-15 09:19 | XMS_ITS | Encounter Summary ---
Author Organization [facility] Address [address] [place] [address] Care Team Providers Care Articulation Officer Name Role Phone Marianne Beltran APN Primary Care Provider [phone] Encounter Details Date Type Department Care Team (Latest Contact Info) Description 07/11/2005 Outpatient Historical [facility] [address] [place] [address] Felice Burgess MD [address] [place] [address] Pain in Joint, Shoulder Region (Primary Dx) Social History Tobacco Use Types Packs/Day Years Used Date Smoking Tobacco: Never Assessed Sex and Gender Information Value Date Recorded Sex Assigned at Not on file 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 [place] [address] PCP - General NURSE PRACTITIONER 05/03/18 documented as of this encounter
--- OUTSIDE RECORDS SUMMARY | 2025-02-15 09:19 | XMS_ITS | Encounter Summary ---
Author Organization [facility] Address [address] [place] [address] Care Team Providers Care Bulb Farmworker Name Role Phone Beltran, Marianne Mark APN Primary Care Provider [phone] Encounter Details Date Type Department Care Team (Latest Contact Info) Description 07/11/2005 Outpatient Historical [facility] [address] 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 IMPRESSION: As above. [facility] D: [id number] Dictated By: Danis Monteiro M.D. Electronically Signed By: Danis Monteiro M.D. Date Signed: 07/12/05 Procedure Note 01/14/2009 BILATERAL OBLIQUE CERVICAL SPINE ON 07-11-05 AT 1436: INDICATION: Neck pain and bilateral hand numbness. FINDINGS: Bilateral oblique views of the cervical spine were performed (two images).The neural foramina are widely patent bilaterally. IMPRESSION: As above. [facility] D: [id number] Dictated By: Danis Monteiro M.D. Electronically Signed By: Danis Monteiro M.D. Date Signed: 07/12/05 Felice Burgess MD DIAGNOSTIC IMAGING ORDERABLES Final Result documented in this encounter Visit Diagnoses Diagnosis Cervical spinal stenosis- Primary Spinal stenosis in cervical region documented in this encounter Care Teams Bulb Farmworker Relationship Specialty Start Date End Date Marianne Beltran APN [facility] [address] [address] PCP - General NURSE PRACTITIONER 05/03/18 documented as of this encounter
== END 2025-02-09 11:30 | disposition home or self-care (01) ==
LOC: ER 02:33 → CSU 03:17
PROVIDERS: Admitting Provider Internal Medicine; Emergency Provider Emergency Medicine; PCP Family Medicine; Visit Provider Registered Nurse
DX: J12.1 Respiratory syncytial virus pneumonia (principal); J18.9 Pneumonia, unspecified organism; J96.01 Acute respiratory failure with hypoxia; B02.9 Zoster without complications; N40.0 Benign prostatic hyperplasia without lower urinary tract symptoms; Z79.891 Long term (current) use of opiate analgesic; I10 Essential (primary) hypertension; Z87.891 Personal history of nicotine dependence
CPT/HCPCS: 36415; 71045; 80048; 80053; 81001; 82550; 83605; 83735; 84443; 85025; 86140; 87040; 87637; 93005; 94640; 96361; 96372; 96374; 97161; 97165; 99285; G0378; J0696; J1100; J1650; J7030; J7611; J7644; J9999; Q0163